=== PATIENT | female | born 1960 | race Native Hawaiian/Other Pacific Islander ===

== ENCOUNTER 2023-12-11 12:52 | Outpatient (OUT) | payer MEDICARE, MEDICAID, SELFPAY ==
[2023-12-11 13:26] LABS: Basophils Absolute Auto 0.1 10^3/uL (0.0-0.1); Basophils Percent Auto 0.8 % (0.2-2.0); Eosinophils Absolute Auto 0.4 10^3/uL (0.0-0.7); Eosinophils Percent Auto 2.6 % (0.9-7.0); Hematocrit 40.5 % (36.0-48.0); Immature Granulocytes Abs Auto 0.05 10^3/uL (0.00-0.03); Immature Granulocytes Pct Auto 0.4 % (0.0-0.5); Lymphocytes Absolute Auto 4.2 10^3/uL (1.2-3.8); Lymphocytes Percent Auto 30.6 % (20.5-60.0); Mean Corpuscular HGB Conc 32.1 g/dL (29.9-35.2); Mean Corpuscular Volume 87.3 fL (81.0-99.0); Mean Platelet Volume 10.1 fL (9.5-13.5); Monocytes Absolute Auto 0.5 10^3/uL (0.3-0.8); Monocytes Percent Auto 3.9 % (1.7-12.0); Neutrophils Absolute Auto 8.5 10^3/uL (1.4-6.5); Neutrophils Percent Auto 61.7 % (43.0-75.0); Platelet Count 521 10^3/uL (150-450); Red Blood Count 4.64 10^6/uL (4.20-5.40); Red Cell Distribution Width 14.2 % (11.0-15.0); White Blood Count 13.7 10^3/uL (4.0-11.0)
[2023-12-11 13:29] LABS: Bilirubin Urine NEGATIVE (NEGATIVE); Blood Urine NEGATIVE (NEGATIVE); Clarity Urine CLEAR (CLEAR); Color Urine YELLOW (YELLOW); Glucose Urine UA NEGATIVE (NEGATIVE); Ketones Urine NEGATIVE (NEGATIVE); Leukocyte Esterase Urine NEGATIVE (NEGATIVE); Nitrite Urine NEGATIVE (NEGATIVE); Protein Urine NEGATIVE (NEG/TRACE); Specific Gravity Urine 1.015 (1.005-1.025); Urobilinogen Urine 0.2 EU/dL (0.2-1.0); pH Urine 6.5 (5.0-9.0)
[2023-12-11 13:33] LABS: Urine Microscopic Indicated NO
[2023-12-11 13:39] LABS: Creatinine Urine Random 108.32 mg/dL (20.00-300.00); Microalbum Creatinine Ratio Ur 24.9 mg/g (0.0-29.9); Microalbumin Urine Random 2.7 mg/dL (<=30.0)
[2023-12-11 14:51] LABS: Alanine Aminotransferase 33 U/L (14-59); Albumin Globulin Ratio 0.8; Albumin Level 3.6 g/dL (3.4-5.0); Alkaline Phosphatase 123 U/L (46-116); Anion Gap 14.2; Aspartate Amino Transferase 21 U/L (15-37); Bilirubin Total 0.3 mg/dL (0.2-1.0); Calcium 9.2 mg/dL (8.5-10.1); Carbon Dioxide 26.1 mmol/L (21.0-32.0); Chloride 103 mmol/L (98-107); Cholesterol 208 mg/dL (<=200); Estimated GFR (African America >60 (>=60); Estimated GFR (Non-African Ame 56 (>=60); Globulin 4.3 g/dL; Glucose 104 mg/dL (74-106); HDL Cholesterol 52 mg/dL (40-60); Potassium 3.3 mmol/L (3.5-5.1); Sodium 140 mmol/L (136-145); TSH W/ REFLEX FT4 1.638 uIU/mL (0.358-3.740); Total Protein 7.9 g/dL (6.4-8.2); Triglycerides 77 mg/dL (<=150); VLDL CHOLESTEROL 15.4 mg/dL
== END 2023-12-11 12:53 | disposition home or self-care (01) ==
LOC: LAB 12:59
PROVIDERS: PCP Nurse Practitioner; Visit Provider Nurse Practitioner
DX: K21.9 Gastro-esophageal reflux disease without esophagitis (principal); I10 Essential (primary) hypertension; E78.2 Mixed hyperlipidemia; F41.9 Anxiety disorder, unspecified
CPT/HCPCS: 36415; 80053; 80061; 81003; 82043; 82570; 84443; 85025

== ENCOUNTER 2024-02-27 10:36 | Outpatient (OUT) | payer MEDICARE, MEDICAID, SELFPAY ==
--- OUTSIDE RECORDS SUMMARY | 2024-02-27 10:49 | XMS_ITS | CCD ---
Author Organization [facility] Care Team Providers Care Sales Ledger Clerk Name Role Phone AICHHOLZ, GEOTHERMAL POWERPLANT SUPERVISOR LIVIA Primary Care Unavailable AICHHOLZ, GEOTHERMAL POWERPLANT SUPERVISOR LIVIA Admitting Unavailable AICHHOLZ, GEOTHERMAL POWERPLANT SUPERVISOR LIVIA Attending Unavailable AICHHOLZ, GEOTHERMAL POWERPLANT SUPERVISOR LIVIA Consulting Unavailable AICHHOLZ, GEOTHERMAL POWERPLANT SUPERVISOR LIVIA Consulting Unavailable AICHHOLZ, GEOTHERMAL POWERPLANT SUPERVISOR LIVIA Primary Care Unavailable AICHHOLZ, GEOTHERMAL POWERPLANT SUPERVISOR LIVIA Admitting Unavailable AICHHOLZ, GEOTHERMAL POWERPLANT SUPERVISOR LIVIA Attending Unavailable ZIEBROEL, DR CAMPOS Laws Consulting Unavailable AICHHOLZ, GEOTHERMAL POWERPLANT SUPERVISOR LIVIA Primary Care Unavailable ODESSA, DR ALBAN Walters Consulting Unavailable AICHHOLZ, GEOTHERMAL POWERPLANT SUPERVISOR LIVIA Admitting Unavailable AICHHOLZ, GEOTHERMAL POWERPLANT SUPERVISOR LIVIA Attending Unavailable AICHHOLZ, GEOTHERMAL POWERPLANT SUPERVISOR LIVIA Consulting Unavailable AICHHOLZ, GEOTHERMAL POWERPLANT SUPERVISOR LIVIA Primary Care Unavailable AICHHOLZ, GEOTHERMAL POWERPLANT SUPERVISOR LIVIA Admitting Unavailable AICHHOLZ, GEOTHERMAL POWERPLANT SUPERVISOR LIVIA Attending Unavailable AICHHOLZ, GEOTHERMAL POWERPLANT SUPERVISOR LIVIA Consulting Unavailable JUANEBROEL, DR CAMPOS Laws Consulting Unavailable Aichholz RN DISEASE MANAGEMENT, Livia Unavailable Jason Subramanian MD Primary Care Provider AICHHOLZ, LIVIA Attending Unavailable AICHHOLZ, LIVIA Attending Unavailable Allergies Allergy Classification Reported Allergen(s) Allergy Type Date of Onset Reaction(s) Facility (2 sources) Famotidine Propensity to adverse reactions 3 Cough [facility] Work Phone: Medications Current Medications Medication Drug Class(es) Dates Sig (Normalized) Sig (Original) [id number] 200 actuat albuterol 0.09 mg/actuat metered dose inhaler (4 sources) beta2-Adrenergic Agonist Start: 11-19-2023 End: 12-19-2023 take 2 puff(s) by inhalation every six hours for wheezing and wheezing, then take 2 puff(s) by inhalation every four hours for wheezing and wheezing albuterol HFA 90 mcg/act inhaler Indications: Environmental allergies Inhale 2 puffs every 6 (six) hours if needed for wheezing Inhale 2 puffs every 4 (four) hours if needed for wheezing. 18 g 1 11/19/2023 12/19/2023 Active End: 11-19-2023 take 2 puff(s) by inhalation every four hours for wheezing albuterol HFA 90 mcg/act inhaler Inhale 2 puffs every 4 (four) hours if needed for wheezing. 0 11/19/2023 Discontinued (Reorder) cholecalciferol 0.05 mg oral capsule (2 sources) Vitamin D take 1 capsule by mouth in the morning cholecalciferol (Vitamin D-3) 50 MCG (2000 UT) capsule Take 2,000 Units by mouth in the morning. 0 Active fluticasone (2 sources) Corticosteroid FLUTICASONE PROPIONATE, NASAL, NA Fluticasone Propionate 0 Active Fluticasone-Umeclidin -Vilant (Trelegy Ellipta) 200-62.5-25 MCG/ACT aerosol powder (2 sources) Start: 2022 take 1 puff(s) by inhalation in the morning Fluticasone-Umeclidi n-Vilant (Trelegy Ellipta) 200-62.5-25 MCG/ACT aerosol powder Indications: Moderate persistent asthma without complication (CMS/HCC) Inhale 1 puff in the morning. 1 each 05/13/2023 Active 24 hr metoprolol succinate 50 mg extended release oral tablet (4 sources) beta-Adrenergic Gordo Start: 2023 End: 2023 take 1 tablet by mouth every twenty-four hours in the morning metoprolol succinate XL (Toprol-XL) 50 MG 24 hr tablet Indications: Primary hypertension (CMS/HCC) Take 1 tablet (50 mg) by mouth in the morning. Do not crush or chew.. 30 tablet 1 11/19/2023 12/19/2023 Active montelukast 10 mg oral tablet (4 sources) Leukotriene Receptor Antagonist Start: 2022 End: 2023 take 1 tablet by mouth at bedtime montelukast (Singulair) 10 MG tablet Indications: Environmental allergies Take 1 tablet (10 mg) by mouth at bedtime 30 tablet 1 11/19/2023 12/19/2023 Active 24 hr nicotine 0.875 mg/hr transdermal system (2 sources) Cholinergic Nicotinic Agonist Start: 2023 End: 2023 apply 1 dose transdermal route every twenty-four hours, then apply 1 dose transdermal route once daily nicotine (Nicoderm, Step 1) 21 MG/24HR patch Indications: Tobacco user Place 1 patch over 24 hours on the skin 1 (one) time each day at the same time Replace patch each day, rotate sites to avoid skin irritation 30 patch 1 11/19/2023 12/19/2023 Active 24 hr NIFEdipine 90 mg extended release oral tablet (4 sources) Dihydropyridine Calcium Channel Gordo Start: 2023 End: 2023 take 1 tablet by mouth every twenty-four hours in the morning NIFEdipine CC (Adalat CC) 90 MG 24 hr tablet Indications: Primary hypertension (CMS/HCC) Take 1 tablet (90 mg) by mouth in the morning. Take before meals. Do not crush, chew, or split.Take 90 mg by mouth in the morning. Take before meals. Do not crush, chew, or split... 30 tablet 1 11/19/2023 12/19/2023 Active Problems Active Problems Problem Classification Problem Date Documented Date Episodic/Chronic Allergic reactions (4 sources) Environmental allergy; Translations: [Other allergy status, other than to drugs and biological substances] Onset: 11-11-2023 11-19-2023 Episodic Anxiety disorders (4 sources) Anxiety; Translations: [Anxiety disorder, unspecified] Onset: 11-11-2023 11-19-2023 Chronic Chronic kidney disease (1 source) Chronic kidney disease, unspecified; Translations: [CHRONIC KIDNEY DISEASE UNSPECIFIED] Onset: 05-16-2022 Chronic Disorders of lipid metabolism (4 sources) Mixed hyperlipidemia; Translations: [Mixed hyperlipidemia] Onset: 11-11-2023 11-19-2023 Chronic Esophageal disorders (4 sources) Gastroesophageal reflux disease; Translations: [Gastro-esophageal reflux disease without esophagitis] Onset: 11-11-2023 11-19-2023 Chronic Essential hypertension (4 sources) Essential hypertension; Translations: [Essential (primary) hypertension] Onset: 11-11-2023 11-19-2023 Chronic Hypertension with complications and secondary hypertension (4 sources) Hypertensive chronic kidney disease with stage 1 through stage 4 chronic kidney disease, or unspecified chronic kidney disease; Translations: [HTN CKD W/STAGE 1-4 CKD/UNS CKD] Onset: 05-10-2022 Chronic Other connective tissue disease (4 sources) Triggering of digit; Translations: [Trigger finger, right middle finger] Onset: 11-19-2023 11-19-2023 Episodic Other lower respiratory disease (7 sources) Chronic cough; Translations: [Chronic cough] Onset: 05-14-2022 Episodic Other screening for suspected conditions (not mental disorders or infectious disease) (4 sources) Encounter for screening mammogram for malignant neoplasm of breast; Translations: [ENC SCR MAMMO MALIG NEOPLASM BREAST] Onset: 02-12-2023 Episodic Residual codes; unclassified (4 sources) Tobacco user; Translations: [Tobacco use] Onset: 11-19-2023 11-19-2023 Episodic Spondylosis; intervertebral disc disorders; other back problems (6 sources) Spondylosis without myelopathy or radiculopathy, cervical region; Translations: [Other intervertebral disc degeneration, lumbar region] Onset: 05-17-2022 11-11-2023 Chronic Spondylosis; intervertebral disc disorders; other back problems (2 sources) Spinal stenosis in cervical region; Translations: [Spinal stenosis, cervical region] Onset: 11-11-2023 11-11-2023 Episodic Past or Other Problems Problem Classification Problem Date Documented Da te Episodic/Chronic Other acquired deformities (4 sources) Spondylolisthesis , cervical region; Translations: [SPONDYLOLISTHESI S CERVICAL REGION] Onset: 07-12-2022 Episodic Other nutritional; endocrine; and metabolic disorders (1 source) Overweight; Translations: [OVERWEIGHT] Onset: 05-16-2022 Episodic Results Test Name Value Interpretation Reference Range Facil ity HEMOGLOBINon 02-12-2023 Hemoglobin (Bld) [Mass/Vol] 14.1 g/dL Normal 12.0-16.0 [facility] Comment on above: Performed By: #### H GB ####[facility] [id number] [place] [address]Dr. Neno Bhandari MG MAMM SCREEN 3D SHAWN CADon 02-12-2023 MG MAMM SCREEN 3D SHAWN CAD Patient: LEXII LUCIANO Exam Date: 02/12/2023 : 1960 Gender:F Ordering : [facility] Admission #: [id number] Family : Order #: [id number] CLICK HERE TO VIEW EXAM RADIOLOGY REPORT PROCEDURE: MAMMOGRAM SCREENING 3D BILATERAL CAD COMPARISON: None. INDICATIONS: Screening mammography Calculator Name NCI Breast Cancer Risk Assessment Tool 5 Year Breast Cancer Risk Not Reported. Lifetime Breast Cancer Risk Not Reported. Personal Breast Cancer No Personal Ovarian Cancer No Treatments None Family Cancers None LOCATION: [facility] BREAST COMPOSITION: Scattered areas fibroglandular density. FINDINGS: DIAGNOSTIC CATEGORY 1--NEGATIVE. RIGHT BREAST: No significant suspicious finding. LEFT BREAST: No significant suspicious finding. RECOMMENDATIONS: ROUTINE MAMMOGRAM AND CLINICAL EVALUATION IN 12 MONTHS. PLEASE NOTE: A NORMAL MAMMOGRAM DOES NOT EXCLUDE THE POSSIBILITY OF BREAST CANCER. A CLINICALLY SUSPICIOUS PALPABLE LUMP SHOULD BE BIOPSIED. Dictated by: Campos Crowley M.D. on 03/13/2023 at 11:56 Approved by: Campos Crowley M.D. on 03/13/2023 at 12:00 Normal [facility] MRI CSPINE WO CONon 09-29-20 22 MRI CSPINE WO CON EXAMINATION: MRI CSP INE WO CON HISTORY: Spondylolisthesis COMPARISON: 05/14/2022 TECHNIQUE: A variety of imaging planes and parameters were utilized for visualization of suspected pathology. FINDINGS: CRANIOCERVICAL AREA: Normal foramen magnum with no Chiari malformation. PARASPINAL AREA: Normal with no visible mass. BONES: Reversal of cervical lordosis. No acute fracture or spondylolisthesis. Mild to moderate diffuse degenerative spondylosis and facet osteoarthropathy CORD: Normal caliber, contour, and signal intensity. CERVICAL DISC LEVELS: C2-C3: No significant disc/facet abnormality, spinal stenosis, or foraminal stenosis. C3-C4: Disc desiccation. Moderate disc/osteophyte complex and facet osteoarthropathy. Narrowing the central canal to 7 mm in AP dimension. Mild bilateral foraminal stenosis C4-C5: Moderate disc space narrowing and disc desiccation. Mild to moderate diffuse disc/osteophyte complex with facet osteoarthropathy narrowing of the central canal to 7.7 mm in AP dimension. Moderate right and no left foraminal stenosis C5-C6: Moderate disc space narrowing. Moderate diffuse disc/osteophyte complex and facet osteoarthropathy narrowing the central canal to 6.1 mm. Moderate bilateral foraminal stenosis C6-C7: Early degenerative disc disease is present without focal protrusion or neural impingement. C7-T1:. No significant disc/facet abnormality, spinal stenosis, or foraminal stenosis. IMPRESSION: Moderate degenerative changes resulting in central and foraminal stenosis at multiple levels as detailed above Reversal of normal cervical lordosis Electronically authenticated by: ALBAN JIN Date: 2022-07-12 17:49 Normal [facility] XR CHEST 2 Von 05-15-2022 XR CHEST 2 V EXAMINATION: XR CHES T 2 V HISTORY: Chronic cough , back pain COMPARISON: No relevant comparison available. FINDINGS: LUNGS: No significant pulmonary parenchymal abnormalities. VASCULATURE: No increased pulmonary vasculature. PLEURA: No pneumothorax, effusion, or pleural thickening. CARDIAC: No cardiomegaly or cardiac silhouette abnormality. MEDIASTINUM: No visible mass or adenopathy. BONES: Mild right convex curvature of thoracic spine. OTHER: Negative. IMPRESSION: 1. No acute cardiopulmonary process. 2. Mild dextroscoliosis. Electronically authenticated by: CAMPOS CROWLEY Date: 2022-05-15 10:29 Normal [facility] XR CSPINE 2_3 VIEWSon 2021 XR CSPINE 2_3 VIEWS EXAMINATION: XR CSPINE 2_3 VIEWS HISTORY: Degeneration of cervical intervertebral disc ; chronic neck pain COMPARISON: No relevant comparison available. FINDINGS: BONES: Reversal of the normal lordotic curvature. Minimal grade 1 retrolisthesis of C4-C5 and C5 on 6. No compression fracture. Multilevel mild degenerative facet arthropathy. DISC SPACES: Mild narrowing C3-C4, C4-C5, C5-C6. PARASPINOUS: Negative. No paraspinous abnormality is seen. OTHER: Negative. IMPRESSION: 1. Multilevel mild degenerative changes. Consider MRI for further evaluation. 2. Reversal of normal lordotic curvature; positioning versus muscle spasm. Electronically authenticated by: CAMPOS CROWLEY Date: 2022-05-15 10:25 Normal [facility] XR LSPINE 2_3 VIEWSon 2021 XR LSPINE 2_3 VIEWS EXAMINATION: XR LSPINE 2_3 VIEWS HISTORY: Degeneration of lumbar intervertebral disc ; chronic low back pain COMPARISON: No relevant comparison available. FINDINGS: BONES: No significant spondylosis, scoliosis, fracture, or visible bony lesion. DISC SPACES: Marked narrowing L5-S1. Mild narrowing L4-L5. PARASPINOUS: Negative. No paraspinous abnormality is seen. OTHER: Negative. IMPRESSION: 1. L5-S1 marked degenerative disc disease. Consider MRI for further evaluation. Electronically authenticated by: CAMPOS CROWLEY Date: 2022-05-15 10:30 Normal [facility] PTH INTACTon 05-11-2022 PTH, Intact 39 pg/mL Normal 15-65 [facility] Comment on above: Performed By: #### P THINT #### [facility] [address] [place] [address] Dr. Neno Bhandari CBC AUTO DIFFon 05-10-2022 BASO # 0.1 103/ul Normal 0.0-0.1 [facility] Comment on above: Performed By: #### C BC #### [facility] [address] [place] [address] Dr. Neno Bhandari Basophils/100 WBC (Bld) 0.9 % Normal 0.2-2.0 [facility] Comment on above: Performed By: #### C BC #### [facility] [address] [place] [address] Dr. Neno Bhandari EO # 0.4 103/ul Normal 0.0-0.7 [facility] Comment on above: Performed By: #### C BC #### [facility] [address] [place] [address] Dr. Neno Bhandari Eosinophils/100 WBC (Bld) 2.9 % Normal 0.9-7.0 [facility] Comment on above: Performed By: #### C BC #### [facility] [address] [place] [address] Dr. Neno Bhandari Erythrocyte distribution width (RBC) [Ratio] 14.2 % Normal 11.0-15.0 [facility] Comment on above: Performed By: #### C BC #### [facility] [address] [place] [address] Dr. Neno Bhandari Hematocrit (Bld) [Volume fraction] 40.8 % Normal 36.0-48.0 [facility] Comment on above: Performed By: #### C BC #### [facility] [address] [place] [address] Dr. Neno Bhandari Hemoglobin (Bld) [Mass/Vol] 13.4 g/dL Normal 12.0-16.0 [facility] Comment on above: Performed By: #### C BC #### [facility] [address] [place] [address] Dr. Neno Bhandari IG # 0.06 10e3/ul Critically high 0.00-0.03 [facility] Comment on above: Performed By: #### C BC #### [facility] [address] [place] [address] Dr. Neno Bhandari IG % 0.5 % Normal 0.0-0.5 [facility] Comment on above: Performed By: #### C BC #### [facility] [address] [place] [address] Dr. Neno Bhandari LYMPH # 3.9 103/ul Critically high 1.2-3.8 [facility] Comment on above: Performed By: #### C BC #### [facility] [address] [place] [address] Dr. Neno Bhandari Lymphocytes/100 WBC (Bld) 30.7 % Normal 20.5-60.0 [facility] Comment on above: Performed By: #### C BC #### [facility] [address] [place] [address] Dr. Neno Bhandari MANUAL DIFF REQ NO Normal [facility] Comment on above: Performed By: #### C BC #### [facility] [address] [place] [address] Dr. Neno Bhandari MCH (RBC) [Entitic mass] 28.3 pg Normal 26.7-34.0 [facility] Comment on above: Performed By: #### C BC #### [facility] [address] [place] [address] Dr. Neno Bhandari MCHC (RBC) [Mass/Vol] 32.8 g/dL Normal 29.9-35.2 [facility] Comment on above: Performed By: #### C BC #### [facility] [address] [address] [address] Neno Bhandari MCV (RBC) [Entitic vol] 86.3 fL Normal 81.0-99.0 [facility] Comment on above: Performed By: #### C BC #### [facility] [address] [address] [address] Neno Bhandari MONO # 0.5 103/ul Normal 0.3-0.8 [facility] Comment on above: Performed By: #### C BC #### [facility] [address] [address] [address] Neno Bhandari Monocytes/100 WBC (Bld) 4.1 % Normal 1.7-12.0 [facility] Comment on above: Performed By: #### C BC #### [facility] [address] [address] [address] Neno Bhandari NEUT # 7.7 103/ul Critically high 1.4-6.5 [facility] Comment on above: Performed By: #### C BC #### [facility] [address] [id number] Neno Bhandari Neutrophils/100 WBC (Bld) 60.9 % Normal 43.0-75.0 [facility] Comment on above: Performed By: #### C BC #### [facility] [address] [address] [address] Neno Bhandari Platelet mean volume (Bld) [Entitic vol] 11.1 fL Normal 9.5-13.5 [facility] Comment on above: Performed By: #### C BC #### [facility] [address] [address] [address] Neno Bhandari PLT 392 103/ul Normal 150-450 [facility] Comment on above: Performed By: #### C BC #### [facility] [id number] Neno Bhandari RBC 4.73 106/ul Normal 4.20-5.40 [facility] Comment on above: Performed By: #### C BC #### [facility] [address] [address] [address] Neno Bhandari WBC 12.6 103/ul Critically high 4.0-11.0 [facility] Comment on above: Performed By: #### C BC #### [facility] [address] [address] [address] Neno Bhandari LIPID PROFILEon 05-10-2022 CHOL-HDL RATIO NORM SEE BELOW Normal [facility] Comment on above: Result Comment: 3.3 - 4.4 LOW RISK 4.4 - 7.1 AVERAGE RISK 7.1 - 11.0 MODERATE RISK >11.0 HIGH RISK Performed By: #### P HOS, CMP, LIPID #### [facility] [address] [address] [address] Neno Bhandari Cholesterol [Mass/Vol] 211 mg/dL Critically high <=200 [facility] Comment on above: Performed By: #### P HOS, CMP, LIPID #### [facility] [address] [address] [address] Neno Bhandari Cholesterol in HDL [Mass/Vol] 50 mg/dL Normal 40-60 [facility] Comment on above: Performed By: #### P HOS, CMP, LIPID #### [facility] [address] [address] [address] Neno Bhandari Cholesterol in LDL [Mass/Vol] 137.4 mg/dL Normal [facility] Comment on above: Performed By: #### P HOS, CMP, LIPID #### [facility] [address] [address] [address] Neno Bhandari Cholesterol.total/ Cholesterol in HDL [Mass ratio] 4.2 {ratio} Normal [facility] Comment on above: Performed By: #### P HOS, CMP, LIPID #### [facility] [address] [place] [address] Dr. Neno Bhandari HDL NORMAL > or = 60 mg/dl - LO W CARDIOVASCULAR RISK <40 mg/dl - HIGH CARDIOVASCULAR RISK Normal [facility] Comment on above: Performed By: #### P HOS, CMP, LIPID #### [facility] [address] [address] [address] Neno Bhandari LDL CALC NORMAL SEE BELOW Normal [facility] Comment on above: Result Comment: <100 mg/dl OPTIMAL 100 - 129 mg/dl NEAR OR ABOVE OPTIMAL 130 - 159 mg/dl BORDERLINE HIGH 160 - 189 mg/dl HIGH >190 mg/dl VERY HIGH Performed By: #### P HOS, CMP, LIPID #### [facility] [address] [address] [address] Neno Bhandari Triglyceride [Mass/Vol] 118 mg/dL Normal <=150 [facility] Comment on above: Performed By: #### P HOS, CMP, LIPID #### [facility] [address] [address] [address] Neno Bhandari VLDL CALC 23.6 mg/dL Normal [facility] Comment on above: Performed By: #### P HOS, CMP, LIPID #### [facility] [address] [address] [address] Neno Bhandari PHOSPHORUSon 05-10-2022 Phosphate [Mass/Vol] 2.9 mg/dL Normal 2.6-4.7 [facility] Comment on above: Performed By: #### P HOS, CMP, LIPID #### [facility] [address] [address] [address] Neno Bhandari PROF 14(COMP METB)on 022 Albumin [Mass/Vol] 3.7 g/dL Normal 3.4-5.0 [facility] Comment on above: Performed By: #### P HOS, CMP, LIPID #### [facility] [address] [address] [address] Neno Bhandari Albumin/Globulin [Mass ratio] 1.1 {ratio} Normal [facility] Comment on above: Performed By: #### P HOS, CMP, LIPID #### [facility] [address] [address] [address] Neno Bhandari ALP [Catalytic activity/Vol] 70 U/L Normal 46-116 [facility] Comment on above: Performed By: #### P HOS, CMP, LIPID #### [facility] [address] [address] [address] Neno Bhandari ALT [Catalytic activity/Vol] 16 U/L Normal 14-59 [facility] Comment on above: Performed By: #### P HOS, CMP, LIPID #### [facility] [address] [address] [address] Neno Bhandari Anion gap [Moles/Vol] 14.1 mmol/L Normal [facility] Comment on above: Performed By: #### P HOS, CMP, LIPID #### [facility] [address] [address] [address] Neno Bhandari AST [Catalytic activity/Vol] 21 U/L Normal 15-37 [facility] Comment on above: Performed By: #### P HOS, CMP, LIPID #### [facility] [address] [place] [address] Dr. Neno Bhandari Bilirubin [Mass/Vol] 0.4 mg/dL Normal 0.2-1.0 [facility] Comment on above: Performed By: #### P HOS, CMP, LIPID #### [facility] [address] [place] [address] Dr. Neno Bhandari Calcium [Mass/Vol] 8.8 mg/dL Normal 8.5-10.1 [facility] Comment on above: Performed By: #### P HOS, CMP, LIPID #### [facility] [address] [place] [address] Dr. Neno Bhandari Chloride [Moles/Vol] 108 mmol/L Critically high 98-107 [facility] Comment on above: Performed By: #### P HOS, CMP, LIPID #### [facility] [address] [place] [address] Dr. Neno Bhandari CO2 [Moles/Vol] 23.5 mmol/L Normal 21.0-32.0 [facility] Comment on above: Performed By: #### P HOS, CMP, LIPID #### [facility] [address] [place] [address] Dr. Neno Bhandari Creatinine [Mass/Vol] 0.77 mg/dL Normal 0.55-1.02 [facility] Comment on above: Performed By: #### P HOS, CMP, LIPID #### [facility] [address] [address] [address] Neno Bhandari EGFR-AF GREEK >60 Normal >=60 [facility] Comment on above: Performed By: #### P HOS, CMP, LIPID #### [facility] [address] [address] [address] Neno Bhandari EGFR-NON AF GREEK >60 Normal >=60 [facility] Comment on above: Performed By: #### P HOS, CMP, LIPID #### [facility] [address] [address] [address] Neno Bhandari Globulin (S) [Mass/Vol] 3.5 g/dL Normal [facility] Comment on above: Performed By: #### P HOS, CMP, LIPID #### [facility] [address] [address] [address] Neno Bhandari Glucose [Mass/Vol] 104 mg/dL Normal 74-106 [facility] Comment on above: Performed By: #### P HOS, CMP, LIPID #### [facility] [address] [address] [address] Neno Bhandari Potassium [Moles/Vol] 3.6 mmol/L Normal 3.5-5.1 [facility] Comment on above: Performed By: #### P HOS, CMP, LIPID #### [facility] [address] [address] [address] Neno Bhandari Protein [Mass/Vol] 7.2 g/dL Normal 6.4-8.2 [facility] Comment on above: Performed By: #### P HOS, CMP, LIPID #### [facility] [address] [address] [address] Neno Bhandari Sodium [Moles/Vol] 142 mmol/L Normal 136-145 [facility] Comment on above: Performed By: #### P HOS, CMP, LIPID #### [facility] [address] [address] [address] Neno Bhandari Urea nitrogen [Mass/Vol] 14.0 mg/dL Normal 7.0-18.0 [facility] Comment on above: Performed By: #### P HOS, CMP, LIPID #### [facility] [address] [address] [address] Neno Bhandari Urea nitrogen/Creatinin e [Mass ratio] 18.2 mg/mg Normal [facility] Comment on above: Performed By: #### P HOS, CMP, LIPID #### [facility] [address] [address] [address] Neno Bhandari UA RANDOM W/MICROSCOPICon BACTERIA NONE SEEN Normal NONE SEEN [facility] Comment on above: Performed By: #### U AMIC ####[facility] [address] [address]Dr. Neno Bhandari Bilirubin Ql (U) Negative Normal NEGATIVE [facility] Comment on above: Performed By: #### U AMIC ####[facility] [address] [address]Dr. Neno Bhandari CA OX CRYSTALS MODERATE Normal [facility] Comment on above: Performed By: #### U AMIC ####[facility] [address] [address]DrJoel Bhandari CAST NONE SEEN Normal NONE SEEN [facility] Comment on above: Performed By: #### U AMIC ####[facility] [address] [address]Dr. Neno Bhandari Clarity (U) CLEAR Normal CLEAR [facility] Comment on above: Performed By: #### U AMIC ####[facility] [address] [address]Dr. Neno Bhandari Color (U) LT. YELLOW Normal YELLOW [facility] Comment on above: Performed By: #### U AMIC ####[facility] [address] [address]Dr. Neno Bhandari Crystals LM Nom (Urine sed) SEEN Abnormal NONE SEEN [facility] Comment on above: Performed By: #### U AMIC ####[facility] [address] [address]Dr. Neno Bhandari Epithelial cells LM Ql (Urine sed) RARE Normal NONE SEEN /RARE [facility] Comment on above: Performed By: #### U AMIC ####[facility] [address] [address]Dr. Neno Bhandari Glucose Ql (U) Negative Normal NEGATIVE [facility] Comment on above: Performed By: #### U AMIC ####[facility] [address] [address]Dr. Neno Bhandari Hemoglobin Ql (U) TRACE-INTACT Abnormal NEGATIVE [facility] Comment on above: Performed By: #### U AMIC ####[facility] [address] [address]Dr. Neno Bhandari Ketones Ql (U) Negative Normal NEGATIVE [facility] Comment on above: Performed By: #### U AMIC ####[facility] [address] [place], [place] [address]Dr. Neno Thony LEUKOCYTES Negative Normal NEGATIVE [facility] Comment on above: Performed By: #### U AMIC ####[facility] [address] [place], [place] [address]Dr. Neno Bhandari MUCOUS NONE SEEN Normal NONE SEEN [facility] Comment on above: Performed By: #### U AMIC ####[facility] [address] [place], [place] [address]Dr. Neno Bhandari Nitrite Ql (U) Negative Normal NEGATIVE [facility] Comment on above: Performed By: #### U AMIC ####[facility] [address] [place], [place] [address]Dr. Neno Bhandari pH (U) 7.0 [pH] Normal 5-9 [facility] Comment on above: Performed By: #### U AMIC ####[facility] [address] [address]Dr. Neno Bhandari RBC 0-2 Normal 0-2 [facility] Comment on above: Performed By: #### U AMIC ####[facility] [address] [address]Dr. Neno Bhandari SPEC GRAVITY 1.020 Normal 1.005-<=1.025 The [facility] Comment on above: Performed By: #### U AMIC ####[facility] [address] [place], [place] [address]Cf. Neno Bhandari UA PROTEIN Negative Normal NEGATIVE/ TRACE [facility] Comment on above: Performed By: #### U AMIC ####[facility] [address] [place], [place] [address]Bw. Neno Bhandari Urobilinogen Qn (U) 0.2 {Camille'U}/dL Normal 0.2 - 1.0 [facility] Comment on above: Performed By: #### U AMIC ####[facility] [address] [id number]. Neno Bhandari WBC 0-2 Abnormal NONE SEEN [facility] Comment on above: Performed By: #### U AMIC ####[facility] [address] [address]Dr. Neno Bhandari Vital Signs Date Time Vital Sign Value Performing Clinician Jesus schofield 11-19-2023 14:30-0500 Body height 149.9 cm Livia Villegas RN DISEASE MANAGEMENT Work Phone: [facility] 11-19-2023 14:30-0500 Body mass index (BMI) [Ratio] 25.37 kg/m2 Livia Villegas RN DISEASE MANAGEMENT Work Phone: [facility] 11-19-2023 14:30-0500 Body temperature 98.01 [degF] Livia Villegas RN DISEASE MANAGEMENT Work Phone: [facility] 11-19-2023 14:30-0500 Body weight 56.97 kg Livia Villegas RN DISEASE MANAGEMENT Work Phone: [facility] 11-19-2023 14:30-0500 Diastolic blood pressure 78 mm[Hg] Livia Villegas RN DISEASE MANAGEMENT Work Phone: [facility] 11-19-2023 14:30-0500 Heart rate 113 /min Livia Villegas RN DISEASE MANAGEMENT Work Phone: [facility] 11-19-2023 14:30-0500 Respiratory rate 18 /min Livia Vilelgas RN DISEASE MANAGEMENT Work Phone: [facility] 11-19-2023 14:30-0500 SaO2% (BldA) [Mass fraction] 99 % Livia Villegas RN DISEASE MANAGEMENT Work Phone: [facility] 11-19-2023 14:30-0500 Systolic blood pressure 112 mm[Hg] Livia Villegas RN DISEASE MANAGEMENT Work Phone: [facility] Healthcare Encounters Encounter Date Encounter Type Care Provider Facility Start: 01-29-2024 End: 01-29-2024 ambulatory LIVIA MAXIMOZ Not Available Start: 11-19-2023 End: 11-19-2023 ambulatory LIVIA MAXIMOZ Not Available Start: 11-19-2023 End: 11-19-2023 Office outpatient visit 25 minutes Livia Villegas RN DISEASE MANAGEMENT Work Phone: [facility] Comment on above: Primary hypertension (CMS/HCC) (Primary Dx); Gastroesophageal reflux disease, unspecified whether esophagitis present; Mixed hyperlipidemia (CMS/HCC); Environmental allergies; Anxiety; Tobacco user; Trigger middle finger of right hand Start: 02-12-2023 End: 02-13-2023 ambulatory [employer]OTHER[employer] POWERPLANT SUPERVISOR LIVIA GRAYHHOLZ Facility:[facility]1 Start: 07-12-2022 End: 07-13-2022 ambulatory GEOTHER[employer] POWERPLANT SUPERVISOR LIVIA GRAYHHOLZ Facility:[facility] Start: 05-14-2022 End: 05-15-2022 ambulatory GEOTHER[employer] POWERPLANT SUPERVISOR LIVIA ABHINAVHOLZ Facility:[facility] Start: 05-10-2022 End: 05-11-2022 ambulatory GEOTHERM[employer] POWERPLANT SUPERVISOR LIVIA GRAYHHOLZ Facility:[facility] Procedures Date Procedure Procedure Detail Performing Clinician Start: 03-13-2023 Mammography Livia Terrie norwood RN DISEASE MANAGEMENT Work Phone: Plan of Treatment Date Care Activity Detail Author Start: 03-13-2024 Screening for malign ant neoplasm of breast Mammogram [facility] Start: 12-25-2023 End: 12-25-2023 Patient encounter procedure 12/25/2023 2:00 PM EDT Office Visit [facility] [address] [place] [id number] Livia Villegas NP [address] [place] [address] [facility] Start: 11-19-2023 End: 11-19-2024 CBC W Auto Differential panel - Blood CBC and differential Lab Routine Gastroesophageal reflux disease, unspecified whether esophagitis present Expected: 11/19/2023 (Approximate), Expires: 11/19/2024 [facility] Work Phone: Comment on above: Expected: 11/19/2023 (Approximate), Expires: 11/19/2024 Start: 11-19-2023 End: 11-19-2024 Comprehensive metabolic 2000 panel - Serum or Plasma Comprehensive metabolic panel Lab Routine Primary hypertension (CMS/HCC) Expected: 11/19/2023 (Approximate), Expires: 11/19/2024 [facility] Comment on above: Expected: 11/19/2023 (Approximate), Expires: 11/19/2024 Start: 11-19-2023 End: 11-19-2024 Lipid 1996 panel - Serum or Plasma Lipid panel Lab Routine Mixed hyperlipidemia (CMS/HCC) Expected: 11/19/2023 (Approximate), Expires: 11/19/2024 [facility] Comment on above: Expected: 11/19/2023 (Approximate), Expires: 11/19/2024 Start: 11-19-2023 End: 11-19-2024 Microalbumin/Creatinine panel in random Urine Microalbumin / creatinine, urine ratio Lab Routine Primary hypertension (CMS/HCC) Expected: 11/19/2023 (Approximate), Expires: 11/19/2024 [facility] Comment on above: Expected: 11/19/2023 (Approximate), Expires: 11/19/2024 Start: 11-19-2023 End: 11-19-2024 TSH W/REFLEX TO FT4 TSH W/REFLEX TO FT4 Lab Routine Anxiety Expected: 11/19/2023 (Approximate), Expires: 11/19/2024 [facility] Comment on above: Expected: 11/19/2023 (Approximate), Expires: 11/19/2024 Start: 11-19-2023 End: 11-19-2024 Urinalysis complete panel - Urine Urinalysis with reflex microscopic (clean catch) Lab Routine Primary hypertension (CMS/HCC) Expected: 11/19/2023 (Approximate), Expires: 11/19/2024 [facility] Comment on above: Expected: 11/19/2023 (Approximate), Expires: 11/19/2024 Start: 1990 Screening for malign ant neoplasm of cervix [facility] Start: 1981 Screening for malign ant neoplasm of cervix Pap Smear [facility] Start: 1960 Screening for malign ant neoplasm of colon [facility] Healthcare Payers Date Payer Category Payer Managed Care HMO (unspecified) [employer] A[employer] [id number] 2023-Present [address] [place] [address] HMO [id number] 2023 Private Health Insurance [id number] 2021 Medicaid MEDICAID [facility] [id number] 2021-Present [phone] [address] [place] [address] Medicaid [id number] 1960 Unknown [id number] 1960 Unknown [id number] 1960 Unknown [id number] 1960 Unknown [id number] 1960 Unknown [id number] 1960 Unknown [id number] 1959 Medicaid [id number] 1959 Medicare [id number] 1959 Medicare [id number] Social History Date Type Detail Facility [facility]: [facility] History of tobacco use Cigarette Smoker [facility] Start: 03-27-2023 End: 11-19-2023 Cigarettes smoked current (pack per day) - Reported 0.5 [facility] Start: 03-27-2023 Tobacco use and exposure Smoke less tobacco non-user [facility] Start: 11-19-2023 Tobacco use panel [facility] Start: 1960 Sex Assigned At Not on file [facility] History of Present illness Narrative 11-19-2023 Livia Villegas NP - 11/19/2023 3:08 PM Bhavya Villegas, MADELEINE - 11/19/2023 3:04 PM Bhavya Villegas, MADELEINE - 11/19/2023 3:03 PM Bhavya Villegas, MADELEINE - 11/19/2023 3:03 PM EST Note Date & Type Note Facility 11-19-2023 History of Presen t illness Narrative Associated Problem(s): Trigger middle finger of right hand Refer to Ortho for evaluation Associated Problem(s): Tobacco user Would like to quit smoking Would like to restart patches, has used in the past Associated Problem(s): Environmental allergies No changes in meds Associated Problem(s): Mixed hyperlipidemia (CMS/HCC) Check labs Associated Problem(s): Gastroesophageal reflux disease Stable on current meds no changes Quit smoking Check labs Associated Problem(s): Hypertension (CMS/HCC) Check labs Refill meds Trigger finger on right hand but not wanting surgery Needs refills on everything Asking for a patch to help quit smoking Images from the original note were not included. Lexii Luciano is a 62 y.o. female presents with chief complaint of No chief complaint on file. HPI: Also has trigger finger to right middle finger Hypertension This is a chronic problem. The current episode started more than 1 year ago. The problem is unchanged. The problem is controlled. Associated symptoms include anxiety. Pertinent negatives include no chest pain, headaches, palpitations, peripheral edema or shortness of breath. There are no associated agents to hypertension. Risk factors for coronary artery disease include smoking/tobacco exposure. Past treatments include calcium channel blockers and beta blockers. There are no compliance problems. SUBJECTIVE: MEDICATIONS: Current Outpatient Medications Medication Instructions albuterol HFA 90 mcg/act inhaler 2 puffs, Inhalation, Every 6 hours PRN, Inhale 2 puffs every 4 (four) hours if needed for wheezing. cholecalciferol (VITAMIN D-3) 2,000 Units, Oral, Daily FLUTICASONE PROPIONATE, NASAL, NA Fluticasone Propionate Zymlxnznaco-Zfaezutxi-Vgshod (Trelegy Ellipta) 200-62.5-25 MCG/ACT aerosol powder 1 puff, Inhalation, Daily metoprolol succinate XL (TOPROL-XL) 50 mg, Oral, Daily, Do not crush or chew. montelukast (SINGULAIR) 10 mg, Oral, Nightly nicotine (Nicoderm, Step 1) 21 MG/24HR patch 1 patch, Transdermal, Every 24 hours, Replace patch each day, rotate sites to avoid skin irritation NIFEdipine CC (ADALAT CC) 90 mg, Oral, Daily before breakfast, Do not crush, chew, or split.Take 90 mg by mouth in the morning. Take before meals. Do not crush, chew, or split.. ALLERGIES: Allergies Allergen Reactions Famotidine Cough REVIEW OF SYMPTOMS: Review of Systems Constitutional: Negative for appetite change, chills and fever. HENT: Positive for postnasal drip and rhinorrhea. Negative for congestion, ear pain and sore throat. Eyes: Negative for pain, discharge, redness and visual disturbance. Respiratory: Negative for cough, shortness of breath and wheezing. Cardiovascular: Negative for chest pain, palpitations and leg swelling. Gastrointestinal: Negative for abdominal pain, blood in stool, constipation, diarrhea, nausea and vomiting. Genitourinary: Negative for difficulty urinating, dysuria and frequency. Musculoskeletal: Negative for arthralgias, back pain, joint swelling and myalgias. Skin: Negative for rash and wound. Neurological: Negative for dizziness, tremors, seizures, syncope and headaches. Psychiatric/Behavioral: Positive for sleep disturbance. Negative for behavioral problems, self-injury and suicidal ideas. The patient is not nervous/anxious. Hematological: Does not bruise/bleed easily. Endocrine: Negative for polydipsia, polyphagia and polyuria. Allergic/Immunologic: Positive for environmental allergies. Negative for food allergies. PAST MEDICAL HISTORY Past Medical History: Diagnosis Date Anxiety 11/11/2023 Arthritis Cervical spinal stenosis 11/11/2023 Cervical spondylosis Chronic cough 11/11/2023 Chronic sinusitis CKD (chronic kidney disease) DDD (degenerative disc disease), cervical 11/11/2023 DDD (degenerative disc disease), lumbar Dyspnea Environmental allergies 11/11/2023 Environmental allergies 11/11/2023 Gastroesophageal reflux disease 11/11/2023 Hypertension (CMS/HCC) 11/11/2023 Shortness of breath on exertion Spondylolisthesis, cervical region Tobacco user 11/19/2023 History reviewed. No pertinent surgical history. Family history is unknown by patient. OBJECTIVE: Visit Vitals BP 112/78 (BP Location: Left arm, Patient Position: Sitting, BP Cuff Size: Adult) Pulse (!) 113 Temp 98 F (Temporal) Resp 18 Ht 4' 11 Wt 125 lb 9.6 oz SpO2 99% BMI 25.37 kg/m Smoking Status Every Day BSA 1.54 m Physical Exam Vitals reviewed. Constitutional: General: She is not in acute distress. Appearance: Normal appearance. HENT: Head: Normocephalic and atraumatic. Right Ear: Tympanic membrane, ear canal and external ear normal. Left Ear: Tympanic membrane, ear canal and external ear normal. Nose: Nose normal. Comments: palor Mouth/Throat: Mouth: Mucous membranes are moist. Eyes: Extraocular Movements: Extraocular movements intact. Conjunctiva/sclera: Conjunctivae normal. Cardiovascular: Rate and Rhythm: Normal rate and regular rhythm. Pulses: Normal pulses. Heart sounds: Normal heart sounds. Pulmonary: Effort: Pulmonary effort is normal. Breath sounds: Normal breath sounds. Abdominal: General: Bowel sounds are normal. There is no distension. Palpations: Abdomen is soft. There is no mass. Tenderness: There is no abdominal tenderness. Musculoskeletal: General: Normal range of motion. Cervical back: Normal range of motion and neck supple. Skin: General: Skin is warm and dry. Capillary Refill: Capillary refill takes 2 to 3 seconds. Findings: No rash. Neurological: General: No focal deficit present. Mental Status: She is alert and oriented to person, place, and time. Psychiatric: Mood and Affect: Mood normal. Behavior: Behavior normal. Thought Content: Thought content normal. Judgment: Judgment normal. ASSESSMENT AND PLAN: No follow-ups on file. Problem List Items Addressed This Visit Hypertension (CMS/HCC) - Primary Check labs Refill meds Relevant Medications metoprolol succinate XL (Toprol-XL) 50 MG 24 hr tablet NIFEdipine CC (Adalat CC) 90 MG 24 hr tablet Other Relevant Orders Comprehensive metabolic panel Microalbumin / creatinine, urine ratio Urinalysis with reflex microscopic (clean catch) Gastroesophageal reflux disease Stable on current meds no changes Quit smoking Check labs Relevant Orders CBC and differential Anxiety Relevant Orders TSH W/REFLEX TO FT4 Environmental allergies No changes in meds Relevant Medications albuterol HFA 90 mcg/act inhaler montelukast (Singulair) 10 MG tablet Mixed hyperlipidemia (CMS/HCC) Check labs Relevant Orders Lipid panel Tobacco user Would like to quit smoking Would like to restart patches, has used in the past Relevant Medications nicotine (Nicoderm, Step 1) 21 MG/24HR patch Trigger middle finger of right hand Refer to Ortho for evaluation documented in this encounter [facility] Evaluation note Note Date & Type Note Facility Evaluation note Diagnosis Primary hypertension (CMS/HCC)- Primary Unspecified essential hypertension Gastroesophageal reflux disease, unspecified whether esophagitis present Mixed hyperlipidemia (CMS/HCC) Mixed hyperlipidemia Environmental allergies Other allergy, other than to medicinal agents Anxiety Anxiety state, unspecified Tobacco user Tobacco use disorder Trigger middle finger of right hand documented in this encounter [facility] Reason for referral (narrative) Consultation (Routine) - Pending Review Note Date & Type Note Facility Reason for referral (narrati ve) Specialty Diagnoses / Procedures Referred By Marino terjo Referred To Contact Orthopaedic Surgery Diagnoses Trigger middle finger of right hand Livia Villegas NP [address] [place] [address] Jr. Bertram Carney DO [address] [address] Referral ID Status Reason Start Date Expiration Date Visits Requested Visits Authorized [id number] Pending Review Specialty Services Required 11/19/2023 05/17/2024 1 1 [facility] Summary Purpose Family History No Family History Records FoundNo Family History Records Found Advance Directives No Advanced Directives Records FoundNo Advanced Directives Records Found Additional Source Comments INFORMATION SOURCE (unrecogn ized section and content) DATE CREATED AUTHOR 03/22/2023 [facility] DATE CREATED AUTHOR AUTHOR'S ORGANIZ ATION 01/30/2024 [facility] Care Teams (unrecognized sec tion and content) Sales Ledger Clerk Relationship Specialty Start Date End Date Jason Subramanian MD [address] [place] [id number] PCP - General Family Medicine 11/19/23 Livia Villegas NP [address] [place] [address] Referring Physician Nurse Practitioner 05/01/23 FOR RECORDS PERTAINING TO PATIENTS WHO ARE OR HAVE BEEN ENROLLED IN A CHEMICAL DEPENDENCY/SUBSTANCEABUSE PROGRAM, SOME INFORMATION MAY BE OMITTED. This clinical summary was aggregated from multiple sources. Caution should be exercised in using it in the provision of clinical care. This summary normalizes information from multiple sources, and as a consequence, information in this document may materially change the coding, format and clinical context of patient data. In addition, data may be omitted in some cases. CLINICAL DECISIONS SHOULD BE BASED ON THE PRIMARY CLINICAL RECORDS. [facility] provides no warranty or guarantee of the accuracy or completeness of information in this document.
[2024-02-27 11:07] LABS: Basophils Absolute Auto 0.1 10^3/uL (0.0-0.1); Basophils Percent Auto 0.5 % (0.2-2.0); Eosinophils Absolute Auto 0.4 10^3/uL (0.0-0.7); Eosinophils Percent Auto 2.9 % (0.9-7.0); Hematocrit 41.3 % (36.0-48.0); Hemoglobin 13.3 g/dL (12.0-16.0); Immature Granulocytes Abs Auto 0.07 10^3/uL (0.00-0.03); Immature Granulocytes Pct Auto 0.5 % (0.0-0.5); Lymphocytes Absolute Auto 4.2 10^3/uL (1.2-3.8); Lymphocytes Percent Auto 32.8 % (20.5-60.0); Mean Corpuscular HGB Conc 32.2 g/dL (29.9-35.2); Mean Corpuscular Hemoglobin 27.7 pg (26.7-34.0); Mean Platelet Volume 10.4 fL (9.5-13.5); Monocytes Absolute Auto 0.6 10^3/uL (0.3-0.8); Monocytes Percent Auto 4.9 % (1.7-12.0); Neutrophils Absolute Auto 7.5 10^3/uL (1.4-6.5); Neutrophils Percent Auto 58.4 % (43.0-75.0); Platelet Count 446 10^3/uL (150-450); Red Cell Distribution Width 13.7 % (11.0-15.0); White Blood Count 12.9 10^3/uL (4.0-11.0)
[2024-02-27 11:31] LABS: Alanine Aminotransferase 21 U/L (14-59); Albumin Globulin Ratio 0.9; Albumin Level 3.4 g/dL (3.4-5.0); Alkaline Phosphatase 118 U/L (46-116); Anion Gap 12.7; Aspartate Amino Transferase 20 U/L (15-37); BUN Creatinine Ratio 16.5; Bilirubin Total 0.2 mg/dL (0.2-1.0); Calcium 9.4 mg/dL (8.5-10.1); Chloride 105 mmol/L (98-107); Estimated GFR (African America >60 (>=60); Estimated GFR (Non-African Ame 58 (>=60); Globulin 3.9 g/dL; Glucose 105 mg/dL (74-106); Potassium 4.7 mmol/L (3.5-5.1); Sodium 139 mmol/L (136-145); Total Protein 7.3 g/dL (6.4-8.2)
== END 2024-02-27 10:37 | disposition home or self-care (01) ==
LOC: LAB 10:38
PROVIDERS: PCP Nurse Practitioner; Visit Provider Nurse Practitioner
DX: R74.8 Abnormal levels of other serum enzymes (principal); R79.89 Other specified abnormal findings of blood chemistry; E87.6 Hypokalemia
CPT/HCPCS: 36415; 80053; 85025

== ENCOUNTER 2024-03-18 19:16 | Outpatient (REF) | payer MEDICARE, MEDICAID, SELFPAY ==
[2024-03-23 17:10] LABS: Age Gdln ACOG Testing Note (.); HPV Aptima Negative (Negative); IGP, Aptima HPV, rfx 16/18,45 Note (.)
== END 2024-03-18 19:17 | disposition home or self-care (01) ==
LOC: LAB 19:16
PROVIDERS: PCP Nurse Practitioner; Visit Provider Nurse Practitioner
DX: Z01.419 Encounter for gynecological examination (general) (routine) without abnormal findings (principal)
CPT/HCPCS: 87624; 88175

== ENCOUNTER 2024-06-30 14:53 | Outpatient (OUT) | payer MEDICARE, MEDICAID, SELFPAY | END 2024-06-30 14:54 | disposition home or self-care (01) | LOC: PST 14:54 | PROVIDERS: PCP Nurse Practitioner; Visit Provider Surgery | DX: Z01.818 Encounter for other preprocedural examination (principal); Z12.11 Encounter for screening for malignant neoplasm of colon ==

== ENCOUNTER 2024-07-07 09:17 | Day surgery (SDC) | payer OTHER, SELFPAY ==
--- NOTE | 2024-07-07 08:53 | W.PM.PROCNOT ---
Date of procedure: 07/07/24 Pre-op diagnosis: screening colonoscopy Procedure: Previous colonoscopy: 2013 procedure: screening colonoscopy The patient was given IV conscious sedation.? The patient's SPO2 remained above 90% throughout the procedure. The colonoscope was inserted per rectum and advanced under direct vision to the cecum without* difficulty.? The prep was good*.? Findings: Terminal ileum os: normal Cecum/Ascending colon: normal Transverse colon: normal Descending/Sigmoid colon: normal Rectum/Anus: examined in normal and retroflexed positions and was normal Withdrawal Time was (minutes): 8* The colon was decompressed and the scope was removed.? The patient tolerated the procedure well. Recommendations/Plan: 1.? Lifestyle and dietary modifications as discussed 2.? F/U Biopsies 3.? F/U in 4.? Discussed with the family Anesthesia: MAC Surgeon: Papito Quijano Condition: stable Disposition: PACU
[2024-07-07 09:25] VITALS: BP 186/75; PULSE 79; TEMP 36.3; O2SAT 100; BMI 26.0
--- OUTSIDE RECORDS SUMMARY | 2024-07-07 09:33 | XMS_ITS | CCD ---
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 Name Role Phone AICHHOLZ, GROOVER AND STRIPER OPERATOR ILVIA Primary Care Unavailable AICHHOLZ, GROOVER AND STRIPER OPERATOR LIVIA Admitting Unavailable AICHHOLZ, GROOVER AND STRIPER OPERATOR LIVIA Attending Unavailable AICHHOLZ, GROOVER AND STRIPER OPERATOR LIVIA Consulting Unavailable AICHHOLZ, GROOVER AND STRIPER OPERATOR LIVIA Consulting Unavailable AICHHOLZ, GROOVER AND STRIPER OPERATOR LIVIA Primary Care Unavailable AICHHOLZ, GROOVER AND STRIPER OPERATOR LIVIA Admitting Unavailable AICHHOLZ, GROOVER AND STRIPER OPERATOR LIVIA Attending Unavailable VINOD, DR CAMPOS Laws Consulting Unavailable AICHHOLZ, GROOVER AND STRIPER OPERATOR LIVIA Primary Care Unavailable [place], DR ALBAN Walters Consulting Unavailable AICHHOLZ, GROOVER AND STRIPER OPERATOR LIVIA Admitting Unavailable AICHHOLZ, GROOVER AND STRIPER OPERATOR LIVIA Attending Unavailable AICHHOLZ, GROOVER AND STRIPER OPERATOR LIVIA Consulting Unavailable AICHHOLZ, GROOVER AND STRIPER OPERATOR LIVIA Primary Care Unavailable AICHHOLZ, GROOVER AND STRIPER OPERATOR LIVIA Admitting Unavailable AICHHOLZ, GROOVER AND STRIPER OPERATOR LIVIA Attending Unavailable AICHHOLZ, GROOVER AND STRIPER OPERATOR LIVIA Consulting Unavailable ZIEBROEL, DR CAMPOS Laws Consulting Unavailable Aichholz METER CHANGES RECORDS CLERK, Livia Unavailable Jason Subramanian MD Primary Care Provider [phone] AICHHOLZ, LIVIA Attending Unavailable AICHHOLZ, LIVIA Attending Unavailable AICHHOLZ, LIVIA Attending Unavailable ALEXA COSME Attending Unavailable ALEXA COSME Attending Unavailable AICHHOLZ, LIVIA Attending Unavailable BASHIR TIJERINA Attending Unavailable Allergies Allergy Classification Reported Allergen(s) Allergy Type Date of Onset Reaction(s) Facility (2 sources) Famotidine Propensity to adverse reactions 3 Cough [facility] Work Phone: Medications Current Medications Medication Drug Class(es) Dates Sig (Normalized) Sig (Original) [id number] 200 actuat albuterol 0.09 mg/actuat metered dose [...] Hemoglobin (Bld) [Mass/Vol] 14.1 g/dL Normal 12.0-16.0 [facility] Comment on above: Performed By: #### H GB ####[facility] [address] [place], [place] [address]Bm. Neno Bhandari MG MAMM SCREEN 3D SHAWN CADon 02-12-2023 MG MAMM SCREEN 3D SHAWN CAD Patient: LEXII LUCIANO Exam Date: 02/12/2023 : 1960 Gender:F Ordering : XIOMARA LIVIA MARSHVel GROOVER AND STRIPER OPERATOR Admission #: [id number] Family : Order #: [id number] CLICK HERE TO VIEW EXAM RADIOLOGY REPORT PROCEDURE: MAMMOGRAM SCREENING 3D BILATERAL CAD COMPARISON: None. INDICATIONS: Screening mammography Calculator Name NCI Breast Cancer Risk Assessment Tool 5 Year Breast Cancer Risk Not Reported. Lifetime Breast Cancer Risk Not Reported. Personal Breast Cancer No Personal Ovarian Cancer No Treatments None Family Cancers None LOCATION: [facility] BREAST COMPOSITION: Scattered areas fibroglandular density. [...] Crowley M.D. on 03/13/2023 at 12:00 Normal [facility] MRI CSPINE WO CONon -29-20 [facility]: MRI CSP INE WO [...] by: ALBAN JIN Date: 2022-07-12 17:49 Normal [facility] XR CHEST 2 Von 05-15-2022 XR CHEST [...] by: CAMPOS CROWLEY Date: 2022-05-15 10:29 Normal [facility] XR CSPINE 2_3 VIEWSon 2021 XR [...] by: CAMPOS CROWLEY Date: 2022-05-15 10:25 Normal [facility] XR LSPINE 2_3 VIEWSon 2021 XR LSPINE [...] by: CAMPOS CROWLEY Date: 2022-05-15 10:30 Normal [facility] PTH INTACTon 05-11-2022 PTH, Intact 39 pg/mL Normal 15-65 [facility] Comment on above: Performed By: #### P THINT #### [facility] [address] [place] [address] Dr. Neno Bhandari CBC AUTO DIFFon 05-10-2022 BASO # 0.1 103/ul Normal 0.0-0.1 [facility] Comment on above: Performed By: #### C BC #### [facility] [address] [place] [address] Dr. Neno Bhandari Basophils/100 WBC (Bld) 0.9 % Normal 0.2-2.0 [facility] Comment on above: Performed By: #### C BC #### [facility] [address] [place] [address] Dr. Neno Bhandari EO # 0.4 103/ul Normal 0.0-0.7 [facility] Comment on above: Performed By: #### C BC #### [facility] [address] [place] [address] Dr. Neno Bhandari Eosinophils/100 WBC (Bld) 2.9 % Normal 0.9-7.0 [facility] Comment on above: Performed By: #### C BC #### [facility] [address] [place] [address] Dr. Neno Bhandari Erythrocyte distribution width (RBC) [Ratio] 14.2 % Normal 11.0-15.0 [facility] Comment on above: Performed By: #### C BC #### [facility] [address] [address] [address] Neno Bhandari Hematocrit (Bld) [Volume fraction] 40.8 % Normal 36.0-48.0 [facility] Comment on above: Performed By: #### C BC #### [facility] [address] [address] [address] Neno Bhandari Hemoglobin (Bld) [Mass/Vol] 13.4 g/dL Normal 12.0-16.0 [facility] Comment on above: Performed By: #### C BC #### [facility] [address] [place] [address] Dr. Neno Bhandari IG # 0.06 10e3/ul Critically high 0.00-0.03 [facility] Comment on above: Performed By: #### C BC #### [facility] [address] [place] [address] Dr. Neno Bhandari IG % 0.5 % Normal 0.0-0.5 [facility] Comment on above: Performed By: #### C BC #### [facility] [address] [place] [address] Dr. Neno Bhandari LYMPH # 3.9 103/ul Critically high 1.2-3.8 [facility] Comment on above: Performed By: #### C BC #### [facility] [address] [place] [address] Dr. Neno Bhandari Lymphocytes/100 WBC (Bld) 30.7 % Normal 20.5-60.0 [facility] Comment on above: Performed By: #### C BC #### [facility] [address] [place] [address] Dr. Neno Bhandari MANUAL DIFF REQ NO Normal [facility] Comment on above: Performed By: #### C BC #### [facility] [address] [place] [address] Dr. Neno Bhandari MCH (RBC) [Entitic mass] 28.3 pg Normal 26.7-34.0 [facility] Comment on above: Performed By: #### C BC #### [facility] [address] [address] [address] Neno Bhandari MCHC (RBC) [Mass/Vol] 32.8 g/dL Normal 29.9-35.2 [facility] Comment on above: Performed By: #### C BC #### [facility] [address] [address] [address] Neno Bhandari MCV (RBC) [Entitic vol] 86.3 fL Normal 81.0-99.0 [facility] Comment on above: Performed By: #### C BC #### [facility] [address] [address] [address] Neno Bhandari MONO # 0.5 103/ul Normal 0.3-0.8 [facility] Comment on above: Performed By: #### C BC #### [facility] [address] [place] [address] Dr. Neno Bhandari Monocytes/100 WBC (Bld) 4.1 % Normal 1.7-12.0 [facility] Comment on above: Performed By: #### C BC #### [facility] [address] [place] [address] Dr. Neno Bhandari NEUT # 7.7 103/ul Critically high 1.4-6.5 [facility] Comment on above: Performed By: #### C BC #### [facility] [address] [place], [place] [id number] Dr. Neno Bhandari Neutrophils/100 WBC (Bld) 60.9 % Normal 43.0-75.0 [facility] Comment on above: Performed By: #### C BC #### [facility] [address] [place] [address] Dr. Neno Bhandari Platelet mean volume (Bld) [Entitic vol] 11.1 fL Normal 9.5-13.5 [facility] Comment on above: Performed By: #### C BC #### [facility] [address] [place] [address] Dr. Neno Bhandari PLT 392 103/ul Normal 150-450 [facility] Comment on above: Performed By: #### C BC #### [facility] [address] [address] [address] Neno Bhandari RBC 4.73 106/ul Normal 4.20-5.40 [facility] Comment on above: Performed By: #### C BC #### [facility] [address] [address] [address] Neno Bhandari WBC 12.6 103/ul Critically high 4.0-11.0 [facility] Comment on above: Performed By: #### C BC #### [facility] [address] [address] [address] Neno Bhandari LIPID PROFILEon 05-10-2022 CHOL-HDL RATIO NORM SEE BELOW Normal [facility] Comment on above: Result Comment: 3.3 - 4.4 LOW RISK 4.4 - 7.1 AVERAGE RISK 7.1 - 11.0 MODERATE RISK >11.0 HIGH RISK Performed By: #### P HOS, CMP, LIPID #### [facility] [address] [address] [address] Neno Bhandari Cholesterol [Mass/Vol] 211 mg/dL Critically high <=200 [facility] Comment on above: Performed By: #### P HOS, CMP, LIPID #### [facility] [address] [address] [address] Neno Bhandari Cholesterol in HDL [Mass/Vol] 50 mg/dL Normal 40-60 [facility] Comment on above: Performed By: #### P HOS, CMP, LIPID #### [facility] [address] [address] [address] Neno Bhandari Cholesterol in LDL [Mass/Vol] 137.4 mg/dL Normal [facility] Comment on above: Performed By: #### P HOS, CMP, LIPID #### [facility] [address] [address] [address] Neno Bhandari Cholesterol.total/ Cholesterol in HDL [Mass ratio] 4.2 {ratio} Normal [facility] Comment on above: Performed By: #### P HOS, CMP, LIPID #### [facility] [address] [address] [address] Neno Bhandari HDL NORMAL > or = 60 mg/dl - LO W CARDIOVASCULAR RISK <40 mg/dl - HIGH CARDIOVASCULAR RISK Normal [facility] Comment on above: Performed By: #### P HOS, CMP, LIPID #### [facility] [address] [id number] [address] Neno Bhandari LDL CALC NORMAL SEE BELOW Normal [facility] Comment on above: Result Comment: <100 mg/dl OPTIMAL 100 - 129 mg/dl NEAR OR ABOVE OPTIMAL 130 - 159 mg/dl BORDERLINE HIGH 160 - 189 mg/dl HIGH >190 mg/dl VERY HIGH Performed By: #### P HOS, CMP, LIPID #### [facility] [address] [address] [address] Neno Bhandari Triglyceride [Mass/Vol] 118 mg/dL Normal <=150 [facility] Comment on above: Performed By: #### P HOS, CMP, LIPID #### [facility] [address] [address] [address] Neno Bhandari VLDL CALC 23.6 mg/dL Normal [facility] Comment on above: Performed By: #### P HOS, CMP, LIPID #### [facility] [address] [address] [address] Neno Bhandari PHOSPHORUSon 05-10-2022 Phosphate [Mass/Vol] 2.9 mg/dL Normal 2.6-4.7 [facility] Comment on above: Performed By: #### P HOS, CMP, LIPID #### [facility] [address] [address] [address] Neno Bhandari PROF 14(COMP METB)on 022 Albumin [Mass/Vol] 3.7 g/dL Normal 3.4-5.0 [facility] Comment on above: Performed By: #### P HOS, CMP, LIPID #### [facility] [address] [address] [address] Neno Bhandari Albumin/Globulin [Mass ratio] 1.1 {ratio} Normal [facility] Comment on above: Performed By: #### P HOS, CMP, LIPID #### [facility] [address] [address] [address] Neno Bhandari ALP [Catalytic activity/Vol] 70 U/L Normal 46-116 [facility] Comment on above: Performed By: #### P HOS, CMP, LIPID #### [facility] [address] [address] [address] Neno Bhandari ALT [Catalytic activity/Vol] 16 U/L Normal 14-59 [facility] Comment on above: Performed By: #### P HOS, CMP, LIPID #### [facility] [address] [address] [address] Neno Bhandari Anion gap [Moles/Vol] 14.1 mmol/L Normal [facility] Comment on above: Performed By: #### P HOS, CMP, LIPID #### [facility] [address] [address] [address] Neno Bhandari AST [Catalytic activity/Vol] 21 U/L Normal 15-37 [facility] Comment on above: Performed By: #### P HOS, CMP, LIPID #### [facility] [address] [address] [address] Neno Bhandari Bilirubin [Mass/Vol] 0.4 mg/dL Normal 0.2-1.0 [facility] Comment on above: Performed By: #### P HOS, CMP, LIPID #### [facility] [address] [address] [address] Neno Bhandari Calcium [Mass/Vol] 8.8 mg/dL Normal 8.5-10.1 [facility] Comment on above: Performed By: #### P HOS, CMP, LIPID #### [facility] [address] [address] [address] Neno Bhandari Chloride [Moles/Vol] 108 mmol/L Critically high 98-107 [facility] Comment on above: Performed By: #### P HOS, CMP, LIPID #### [facility] [address] [address] [address] Neno Bhandari CO2 [Moles/Vol] 23.5 mmol/L Normal 21.0-32.0 [facility] Comment on above: Performed By: #### P HOS, CMP, LIPID #### [facility] [address] [address] [address] Neno Bhandari Creatinine [Mass/Vol] 0.77 mg/dL Normal 0.55-1.02 [facility] Comment on above: Performed By: #### P HOS, CMP, LIPID #### [facility] [address] [place] [address] Dr. Neno Bhandari EGFR-AF GAMBIAN >60 Normal >=60 [facility] Comment on above: Performed By: #### P HOS, CMP, LIPID #### [facility] [address] [address] [address] Neno Bhandari EGFR-NON AF GAMBIAN >60 Normal >=60 [facility] Comment on above: Performed By: #### P HOS, CMP, LIPID #### [facility] [address] [place] [address] Dr. Neno Bhandari Globulin (S) [Mass/Vol] 3.5 g/dL Normal [facility] Comment on above: Performed By: #### P HOS, CMP, LIPID #### [facility] [address] [place] [address] Dr. Neno Bhandari Glucose [Mass/Vol] 104 mg/dL Normal 74-106 [facility] Comment on above: Performed By: #### P HOS, CMP, LIPID #### [facility] [address] [place] [address] Dr. Neno Bhandair Potassium [Moles/Vol] 3.6 mmol/L Normal 3.5-5.1 [facility] Comment on above: Performed By: #### P HOS, CMP, LIPID #### [facility] [address] [place] [address] Dr. Neno Bhandari Protein [Mass/Vol] 7.2 g/dL Normal 6.4-8.2 [facility] Comment on above: Performed By: #### P HOS, CMP, LIPID #### [facility] [address] [place] [address] Dr. Neno Bhandari Sodium [Moles/Vol] 142 mmol/L Normal 136-145 [facility] Comment on above: Performed By: #### P HOS, CMP, LIPID #### [facility] [address] [place] [address] Dr. Neno Bhandari Urea nitrogen [Mass/Vol] 14.0 mg/dL Normal 7.0-18.0 [facility] Comment on above: Performed By: #### P HOS, CMP, LIPID #### [facility] [address] [address] [address] Neno Bhandari Urea nitrogen/Creatinin e [Mass ratio] 18.2 mg/mg Normal [facility] Comment on above: Performed By: #### P HOS, CMP, LIPID #### [facility] [address] [address] [address] Neno Bhandari UA RANDOM W/MICROSCOPICon BACTERIA NONE SEEN Normal NONE SEEN [facility] Comment on above: Performed By: #### U AMIC ####[facility] [address] [address]Dr. Neno Bhandari Bilirubin Ql (U) Negative Normal NEGATIVE [facility] Comment on above: Performed By: #### U AMIC ####[facility] [address] [place], [place] [address]Dr. Neno Bhandari CA OX CRYSTALS MODERATE Normal [facility] Comment on above: Performed By: #### U AMIC ####[facility] [address] [place], [place] [address]Dr. Neno Bhandari CAST NONE SEEN Normal NONE SEEN [facility] Comment on above: Performed By: #### U AMIC ####[facility] [address] [address]Dr. Neno Bhandari Clarity (U) CLEAR Normal CLEAR [facility] Comment on above: Performed By: #### U AMIC ####[facility] [address] [address]Dr. Neno Bhandari Color (U) LT. YELLOW Normal YELLOW [facility] Comment on above: Performed By: #### U AMIC ####[facility] [address] [address]Dr. Neno Bhandari Crystals LM Nom (Urine sed) SEEN Abnormal NONE SEEN [facility] Comment on above: Performed By: #### U AMIC ####[facility] [address] [address]Dr. Neno Bhandari Epithelial cells LM Ql (Urine sed) RARE Normal NONE SEEN /RARE [facility] Comment on above: Performed By: #### U AMIC ####[facility] [address] [address]Dr. Neno Bhandari Glucose Ql (U) Negative Normal NEGATIVE [facility] Comment on above: Performed By: #### U AMIC ####[facility] [address] [place], [place] [address]Dr. Neno Bhandari Hemoglobin Ql (U) TRACE-INTACT Abnormal NEGATIVE [facility] Comment on above: Performed By: #### U AMIC ####[facility] [address] [place], [place] [address]Dr. Neno Bhandari Ketones Ql (U) Negative Normal NEGATIVE [facility] Comment on above: Performed By: #### U AMIC ####[facility] [address] [place], [place] [address]Dr. Neno Bhandari LEUKOCYTES Negative Normal NEGATIVE [facility] Comment on above: Performed By: #### U AMIC ####[facility] [address] [place], [place] [address]Dr. Neno Bhandari MUCOUS NONE SEEN Normal NONE SEEN [facility] Comment on above: Performed By: #### U AMIC ####[facility] [address] [place], [place] [address]Dr. Neno Bhandari Nitrite Ql (U) Negative Normal NEGATIVE [facility] Comment on above: Performed By: #### U AMIC ####[facility] [address] [place], [place] [address]Dr. Neno Bhandari pH (U) 7.0 [pH] Normal 5-9 [facility] Comment on above: Performed By: #### U AMIC ####[facility] [address] [place], [place] [address]Dr. Neno Bhandari RBC 0-2 Normal 0-2 [facility] Comment on above: Performed By: #### U AMIC ####[facility] [address] [place], [place] [address]Dr. Neno Bhandari SPEC GRAVITY 1.020 Normal 1.005-<=1.025 [facility] Comment on above: Performed By: #### U AMIC ####[facility] [address] [place], [place] [address]Qq. Neno Bhandari UA PROTEIN Negative Normal NEGATIVE/ TRACE [facility] Comment on above: Performed By: #### U AMIC ####[facility] [address] [place], [place] [address]Jq. Neno Bhandari Urobilinogen Qn (U) 0.2 {Camille'U}/dL Normal 0.2 - 1.0 [facility] Comment on above: Performed By: #### U AMIC ####[facility] [address] [id number]. Neno Bhandari WBC 0-2 Abnormal NONE SEEN [facility] Comment on above: Performed By: #### U AMIC ####[facility] [address] [id number]. Neno Bhandari Vital Signs Date Time Vital Sign Value Performing Clinician Faci lity 11-19-2023 14:30-0500 Body height 149.9 cm Livia Villegas METER CHANGES RECORDS CLERK Work Phone: [facility] 11-19-2023 14:30-0500 Body mass index (BMI) [Ratio] 25.37 kg/m2 Livia Villegas METER CHANGES RECORDS CLERK Work Phone: [facility] 11-19-2023 14:30-0500 Body temperature 98.01 [degF] Livia Villegas METER CHANGES RECORDS CLERK Work Phone: [facility] 11-19-2023 14:30-0500 Body weight 56.97 kg Livia Villegas METER CHANGES RECORDS CLERK Work Phone: [facility] 11-19-2023 14:30-0500 Diastolic blood pressure 78 mm[Hg] Livia Villegas METER CHANGES RECORDS CLERK Work Phone: [facility] 11-19-2023 14:30-0500 Heart rate 113 /min Livia Villegas METER CHANGES RECORDS CLERK Work Phone: [facility] 11-19-2023 14:30-0500 Respiratory rate 18 /min Livia Aichholz METER CHANGES RECORDS CLERK Work Phone: [facility] 11-19-2023 14:30-0500 SaO2% (BldA) [Mass fraction] 99 % Livia Aichholz METER CHANGES RECORDS CLERK Work Phone: [facility] 11-19-2023 14:30-0500 Systolic blood pressure 112 mm[Hg] Livia Aichholz METER CHANGES RECORDS CLERK Work Phone: [facility] Healthcare Encounters Encounter Date Encounter Type Care Provider Facility Start: 06-22-2024 End: 06-22-2024 ambulatory BASHIR TIJERINA Not Available Start: 06-18-2024 End: 06-18-2024 ambulatory LIVIA AICHHOLZ Not Available Start: 05-12-2024 End: 05-12-2024 ambulatory ALEXA COSME Not Available Start: 04-14-2024 End: 04-14-2024 ambulatory ALEXA COSME Not Available Start: 03-18-2024 End: 03-18-2024 ambulatory LIVIA AICHHOLZ Not Available Start: 01-29-2024 End: 01-29-2024 ambulatory LIVIA AICHHOLZ Not Available Start: 11-19-2023 End: 11-19-2023 Office outpatient visit 25 minutes Livia Aichholz METER CHANGES RECORDS CLERK Work Phone: [facility] Comment on above: Primary hypertension (CMS/HCC) (Primary Dx); Gastroesophageal reflux disease, unspecified whether esophagitis present; Mixed hyperlipidemia (CMS/HCC); Environmental allergies; Anxiety; Tobacco user; Trigger middle finger of right hand Start: 11-19-2023 End: 11-19-2023 ambulatory LIVIA AICHHOLZ Not Available Start: 02-12-2023 End: 02-13-2023 ambulatory GROOVER AND STRIPER OPERATOR LIVIA AICHHOLZ Facility:[facility] Start: 07-12-2022 End: 07-13-2022 ambulatory GROOVER AND STRIPER OPERATOR LIVIA AICHHOLZ Facility:[facility] Start: 05-14-2022 End: 05-15-2022 ambulatory GROOVER AND STRIPER OPERATOR LIVIA AICHHOLZ Facility:[facility] Start: 05-10-2022 End: 05-11-2022 ambulatory GROOVER AND STRIPER OPERATOR LIVIA ISABELA Facility:[facility] Procedures Date Procedure Procedure Detail Performing Clinician Start: 03-13-2023 Mammography Livia norwood [employer] RECORDS CLERK Work Phone: Plan of Treatment Date Care Activity Detail Author Start: 03-13-2024 Screening for malign ant neoplasm of breast Mammogram [facility] Start: 12-25-2023 End: 12-25-2023 Patient encounter procedure 12/25/2023 2:00 PM EDT Office Visit [facility] [address] [place] [address] Livia Villegas, MADELEINE [address] [place] [id number] [facility] Start: 11-19-2023 End: 11-19-2024 CBC W Auto Differential panel - Blood CBC and differential Lab Routine Gastroesophageal reflux disease, unspecified whether esophagitis present Expected: 11/19/2023 (Approximate), Expires: 11/19/2024 [facility] Work Phone: Comment on above: Expected: 11/19/2023 (Approximate), Expires: 11/19/2024 Start: 11-19-2023 End: 11-19-2024 Comprehensive metabolic 2000 panel - Serum or Plasma Comprehensive metabolic panel Lab Routine Primary hypertension (CMS/HCC) Expected: 11/19/2023 (Approximate), Expires: 11/19/2024 [facility] Comment on above: Expected: 11/19/2023 (Approximate), Expires: 11/19/2024 Start: 11-19-2023 End: 11-19-2024 Lipid 1996 panel - Serum or Plasma Lipid panel Lab Routine Mixed hyperlipidemia (CMS/HCC) Expected: 11/19/2023 (Approximate), Expires: 11/19/[address] [facility] Comment on above: Expected: 11/19/2023 (Approximate), Expires: 11/19/2024 Start: 11-19-2023 End: 11-19-2024 Microalbumin/Creatinine panel in random Urine Microalbumin / creatinine, urine ratio Lab Routine Primary hypertension (CMS/HCC) Expected: 11/19/2023 (Approximate), Expires: 11/19/2024 [facility] Comment on above: Expected: 11/19/2023 (Approximate), Expires: 11/19/2024 Start: 11-19-2023 End: 11-19-2024 TSH W/REFLEX TO FT4 TSH W/REFLEX TO FT4 Lab Routine Anxiety Expected: 11/19/2023 (Approximate), Expires: 11/19/2024 [facility] Comment on above: Expected: 11/19/2023 (Approximate), Expires: 11/19/2024 Start: 11-19-2023 End: 11-19-2024 Urinalysis complete panel - Urine Urinalysis with reflex microscopic (clean catch) Lab Routine Primary hypertension (CMS/HCC) Expected: 11/19/2023 (Approximate), Expires: 11/19/2024 [facility] Comment on above: Expected: 11/19/2023 (Approximate), Expires: 11/19/2024 Start: 1990 Screening for malign ant neoplasm of cervix [facility] Start: 1981 Screening for malign ant neoplasm of cervix Pap Smear [facility] Start: 1960 Screening for malign ant neoplasm of colon [facility] Payers Date Payer Category Payer Unknown [id number] 2023 Managed Care HMO (unspecified) AETNA AETNA [id number] 2023-Present [address] [place] [address] HMO [id number] 2023 Medicare [id number] 2021 Medicaid MEDICAID [facility] [id number] 2021-Present [phone] [address] [place] [address] Medicaid [id number] 1960 Unknown [id number] 93 1960 Unknown [id number] [id number] 93 1960 Unknown [id number] [id number] 93 1960 Unknown [id number] 2.16.840.1.710944.3.579.2.5 93 1960 Unknown [id number] 2.16.840.1.820329.3.579.2.1 259 1960 Unknown [id number] 2.16.840.1.255785.3.579.2.1 259 1960 Unknown [id number] 2.16.840.1.737283.3.579.2.1 259 1960 Unknown [id number] 2.16.840.1.509570.3.579.2.1 259 1960 Unknown [id number] 2.16.840.1.078916.3.579.2.1 259 1960 Unknown [id number] 2.16.840.1.145820.3.579.2.1 259 1960 Unknown [id number] [id number] 259 1959 Medicaid [id number] 1959 Medicare [id number] 1959 Medicare [id number] Social History Date Type Detail Facility Start: 03-27-2023 Tobacco smoking stat [facility] Smokes tobacco daily [facility] History of [...] Villegas NP - 11/19/2023 3:08 PM Bhavya Villegas NP - 11/19/2023 3:04 PM Bhavya Villegas NP - 11/19/2023 3:03 PM Bhavya Villegas NP - 11/19/2023 3:03 PM EST Note Date [...] Daily FLUTICASONE PROPIONATE, NASAL, NA Fluticasone Propionate Aihrrrxuqrc-Bnsgeotlr-Wyanfz (Trelegy Ellipta) 200-62.5-25 MCG/ACT aerosol powder 1 [...] Specialty Diagnoses / Procedures Referred By Marino trejo Referred To Contact Orthopaedic Surgery Diagnoses Trigger middle finger of right hand Livia Villegas NP [address] [place] [address] Stepanic, Jr. Bertram C, DO [address] [place] [address] Referral ID Status Reason Start Date Expiration Date Visits Requested Visits Authorized [id number] Pending Review Specialty Services Required 11/19/2023 05/17/2024 1 1 [facility] Summary Purpose Family History No Family History Records FoundNo Family History Records Found Advance Directives No Advanced Directives Records FoundNo Advanced Directives Records Found Additional Source Comments INFORMATION SOURCE (unrecogn ized section and content) DATE CREATED AUTHOR 03/22/2023 [facility] DATE CREATED AUTHOR AUTHOR'S ORGANIZ ATION 06/23/2024 [facility] Care Teams (unrecognized sec tion and content) [employer] Art Teacher Relationship Specialty Start Date End Date Jason Subramanian MD [address] [place] [address] PCP - General Family Medicine 11/19/23 Livia Villegas NP [address] [place] [address] Referring Physician Nurse Practitioner 05/01/23 [...] BE BASED ON THE PRIMARY CLINICAL RECORDS. [email or web address] provides no warranty or guarantee of the accuracy or completeness of information in this document.
[2024-07-07] MEDS: LACTATED RINGER'S SOLUTION 1,000 ML 50 ML IV (09:53)
--- NOTE | 2024-07-07 10:35 | PC.NURSE ---
Patient is cancelled related to incomplete prep. Patient to call office to get rescheduled. Reviewed prep instructions again with patient.
== END 2024-07-07 10:58 | disposition home or self-care (01) ==
LOC: SURGOUT 09:19
PROVIDERS: PCP Nurse Practitioner; Visit Provider Surgery
DX: Z12.11 Encounter for screening for malignant neoplasm of colon (principal); Z53.8 Procedure and treatment not carried out for other reasons
CPT/HCPCS: G0121

== ENCOUNTER 2025-05-17 11:18 | Outpatient (OUT) | payer MEDICARE, MEDICAID, SELFPAY ==
--- OUTSIDE RECORDS SUMMARY | 2025-05-03 17:00 | XMS_ITS | Encounter Summary ---
Author Organization [facility] Address [address] [facility] [place] [address] Care Team Providers Care Cooking Chef Name Role Phone Livia Villegas NP Unavailable [phone] Jason Subramanian MD Primary Care Provider [phone] Reason for Visit * Reason Comments Medicare Annual Wellness Visit Initial Encounter Details Date Type Department Care Team (Late st Contact Info) Description 05/03/2025 5:00 PM EDT Office Visit [facility] [address] [place] [address] Livia Villegas NP [address] [place] [address] Encounter for subsequent annual wellness visit (AWV) in Medicare patient (Primary Dx); Primary hypertension ; Gastroesophageal reflux disease, unspecified whether esophagitis present; Chronic kidney disease, stage 3a (CMS-HCC); Mixed hyperlipidemia ; JAD (generalized anxiety disorder) ; Encounter for screening mammogram for malignant neoplasm of breast; Cigarette nicotine dependence without complication; Current mild episode of major depressive disorder without prior episode ; Environmental allergies; Anxiety; Adjustment insomnia; Lung cancer screening declined by patient Social History Tobacco Use Types Packs/Day Years Used Date Smoking Tobacco: Every Day Cigarettes Smokeless Tobacco: Never Alcohol Use Standard Drinks/Week Comments Not Currently 0 (1 standard drink = 0.6 oz pur e alcohol) PHQ-2 Answer Date Recorded Patient Health Questionnaire-2 Score 2 05/03/2025 Comments Unknown Sex and Gender Information Value Date Recorded Sex Assigned at Not on file Legal Sex Female 11:52 PM EDT Gender Identity Not on file Sexual Orientation Not on file documented as of this encounter Last Filed Vital Signs Vital Sign Reading Time Taken Comments Blood Pressure 138/68 05/03/2025 4:53 PM EDT Pulse 80 05/03/2025 4:53 PM EDT Temperature 36.9 C (98.5 F) 05/03/2025 4:53 PM EDT Respiratory Rate 18 05/03/2025 4:53 PM EDT Oxygen Saturation 98% 05/03/2025 4:53 PM EDT Inhaled Oxygen Concentration - - Weight 57.6 kg (127 lb) 05/03/2025 4:53 PM EDT Height - - Body Mass Index 25.65 09/02/2024 1:03 PM EST documented in this encounter Functional Status * Over the past 2 weeks, how often have you been bothered by any of the following problems? Question Answer Date of Assessment Author Little interest or pleasure in doing things Several days 05/03/2025 4:56 PM EDT PAOLA MEHTA Feeling down, depressed, or hopeless Several days 05/03/2025 4:56 PM EDT PAOLA MEHTA Patient Health Questionnaire -2 Score 2 05/03/2025 4:56 PM EDT PAOLA MEHTA * Question Answer Date of Assessment Author Trouble falling or staying asleep, or sleeping too much More than half the days 05/03/2025 4:56 PM EDT JANET MEHTA Feeling tired or having little energy Several days 05/03/2025 4:56 PM EDT PAOLA MEHTA Poor appetite or overeating Not at all 05/03/2025 4:56 PM EDT PAOLA MEHTA A Feeling bad about yourself - or that you are a failure or have let yourself or your family down Not at all 05/03/2025 4:56 PM EDT PAOLA MEHTA Trouble concentrating on things, such as reading the newspaper or watching television Several days 05/03/2025 4:56 PM EDT PAOLA MEHTA A Moving or speaking so slowly that other people could have noticed? Or the opposite - being so fidgety or restless that you have been moving around a lot more than usual. Several days 05/03/2025 4:56 PM EDT APOLA MEHTA Thoughts that you would be better off or hurting yourself in some way Not at all 05/03/2025 4:56 PM EDT PAOLA MEHTA Patient Health Questionnaire-9 Score 7 05/03/2025 4:56 PM EDT JANET MEHTA documented as of this encounter Patient Instructions * Patient Instructions* Livia Villegas NP - 05/03/2025 5:00 PM EDT For depression/anxiety: we will try fluoxetine at 20mg daily Take medication only as directed. This medication will take approximately 4-6 weeks to become effective. If any suicidal thoughts, thoughts of hurting others, or hallucinations contact the office or proceed to the Emergency Room for mental health evaluation. Medication may cause dry mouth, dizziness, and in some cases worsening in depression symptoms. Please contact the office if these occur. Trazodone at bed time for sleep documented in this encounter Progress Notes * Livia Villegas NP - 05/03/2025 5:35 PM EDTAssociated Problem(s): Encounter for subsequent annual wellness visit (AWV) in Medicare patient Reviewed Ht/Wt/BMI Recommend eye exam yearly Recommend dental exams twice a year Balance work/leisure activities Exercises is recommended most days of the week (appropriate as chronic conditions allow) Follow up yearly and prn * Livia Villegas NP - 05/03/2025 5:30 PM EDTAssociated Problem(s): Lung cancer screening declined by patient Declined * JANET MEHTA - 05/03/2025 5:00 PM EDT Pt is needing prn albuterol inhaler. Pt would like to discuss quitting smoking Pt does not feel that the fluoxetine dosage is not working. * Livia Villegas, MADELEINE - 05/03/2025 5:00 PM EDT Images from the original note were not included. Jenna Luciano is a 64 y.o. female presents with chief complaint of Medicare Annual Wellness Visit Initial HPI: Diet: variety Activity: no Mental Health Concerns: anxiety, no memory issues Falls in the last year: no Still driving: yes Do you pay your bills: yes Any hearing problems:no Any Vision problems: wears glasses, last eye appt: 2024 Any Hospitalizations in the last year: no Specialist:no HCPOA/Living Will:no Concerns: Pt is needing prn albuterol inhaler. Pt would like to discuss quitting smoking Pt does not feel that the fluoxetine dosage is not working. SUBJECTIVE: MEDICATIONS: Current Outpatient Medications Medication Instructions albuterol HFA 90 mcg/act inhaler 2 puffs, Inhalation, Every 6 hours PRN cholecalciferol (VITAMIN D-3) 50 mcg, Oral, Daily FLUoxetine (PROZAC) 20 mg, Oral, Daily fluticasone (Flonase) 50 MCG/ACT nasal spray SPRAY 2 SPRAYS INTO EACH NOSTRIL EVERY DAY metoprolol succinate XL (TOPROL-XL) 50 mg, Oral, Daily, Do not crush or chew montelukast (SINGULAIR) 10 mg, Oral, Nightly NIFEdipine CC (ADALAT CC) 90 mg, Oral, Daily before breakfast, Do not crush, chew, or split.Take 90mg by mouth in the morning. Take before meals. Do not crush, chew, or split.. omeprazole (PRILOSEC) 20 mg, Oral, Daily before breakfast, Do not crush or chew. traZODone (DESYREL) 50 mg, Oral, Nightly ALLERGIES: Allergies Allergen Reactions Famotidine Cough REVIEW OF SYMPTOMS: Review of Systems Constitutional: Negative for appetite change, chills and fever. HENT: Negative for congestion, ear pain and sore [...] dizziness, tremors, seizures, syncope and headaches. Psychiatric/Behavioral: Negative for behavioral problems, self-injury and suicidal ideas. The patient is not nervous/anxious. Hematological: Does not bruise/bleed easily. Endocrine: Negative for polydipsia, polyphagia and polyuria. Allergic/Immunologic: Negative for environmental allergies and food allergies. PAST MEDICAL HISTORY Past Medical History: Diagnosis Date Anxiety 11/11/2023 Arthritis Cervical spinal stenosis 11/11/2023 Cervical spondylosis Chronic cough 11/11/2023 Chronic sinusitis CKD (chronic kidney disease) DDD (degenerative disc disease), cervical 11/11/2023 DDD (degenerative disc disease), lumbar Dyspnea Environmental allergies 11/11/2023 Environmental allergies 11/11/2023 Gastroesophageal reflux disease 11/11/2023 Hypertension 11/11/2023 Shortness of breath on exertion Spondylolisthesis, cervical region Tobacco user 11/19/2023 Past Surgical History: Procedure Laterality Date SECTION, CLASSIC Family history is unknown by patient. OBJECTIVE: Visit Vitals BP 138/68 (BP Location: Left arm, Patient Position: Sitting, BP Cuff Size: Adult long) Pulse 80 Temp 98.5 ??F (Temporal) Resp 18 Wt 127 lb SpO2 98% BMI 25.65 kg/m?? Smoking Status Every Day BSA 1.55 m?? Physical Exam Vitals and nursing note reviewed. Constitutional: General: She is not in acute distress. Appearance: Normal appearance. HENT: Head: Normocephalic and atraumatic. Right Ear: External ear normal. Left Ear: External ear normal. Nose: Nose normal. Mouth/Throat: Mouth: Mucous membranes are moist. Eyes: [...] normal. Judgment: Judgment normal. ASSESSMENT AND PLAN: Follow up in about 4 weeks (around 05/31/2025) for Recheck. Problem List Items Addressed This Visit Hypertension - Primary Please check blood pressure daily and record DASH diet Limit caffeine Take medication as directed Contact office if chest pain, pressure, dizziness, shortness of breath, swelling legs Recommend slow position changes Meds: metoprolol, Nifedipine Relevant Medications metoprolol succinate XL (Toprol-XL) 50 MG 24 hr tablet NIFEdipine CC (Adalat CC) 90 MG 24 hr tablet Other Relevant Orders Comprehensive metabolic panel Urinalysis with reflex microscopic (clean catch) Microalbumin / creatinine, urine ratio Gastroesophageal reflux disease Recommendations: freq small meals, nothing to eat or drink at least 2 hours prior to bed, limit caffeine, alcohol, as well as spicy foods Meds to limit or avoid if possible: NSAIDS Elevate HOB if possible Continue PPI Relevant Medications omeprazole (PriLOSEC) [address] capsule Other Relevant Orders CBC and differential Environmental allergies Relevant Medications albuterol HFA 90 mcg/act inhaler fluticasone (Flonase) 50 MCG/ACT nasal spray montelukast (Singulair) 10 MG tablet Mixed hyperlipidemia No current meds Check labs yearly Relevant Orders Comprehensive metabolic panel Lipid panel Encounter for screening mammogram for malignant neoplasm of breast Relevant Orders Bilateral screening mammogram Chronic kidney disease, stage 3a (CMS-HCC) Recommend good blood pressure control Avoid nephrotoxic meds if possible Check labs yearly and prn changes to meds or changes in sxs Relevant Medications cholecalciferol (Vitamin D-3) 50 MCG (1999) capsule Other Relevant Orders Comprehensive metabolic panel JAD (generalized anxiety disorder) Current med: fluoxetine Relevant Orders TSH Current mild episode of major depressive disorder without prior episode floxetine Relevant Medications FLUoxetine (PROzac) 20 MG capsule Cigarette nicotine dependence without complication The patient has been advised of the risks of continued smoking: stroke, MN, all forms of cancer, lung disease, and . Options for quitting smoking include: cold turkey, hypnosis, acupuncture, nicotine replacement meds(gum, lozenges, and patches), Buproprion, and Varenicline. At this time pt is encouraged to evaluate their goals for wanting to quit smoking, and reach out toprovider when ready to start this process Has used patch in the past Started smokinyo-present 50 years 2ppd, Does not want to do lung cancer screening Relevant Orders Urinalysis with reflex microscopic (clean catch) Adjustment insomnia Relevant Medications traZODone (Desyrel) 50 MG tablet Lung cancer screening declined by patient Declined Encounter for subsequent annual wellness visit (AWV) in Medicare patient Reviewed Ht/Wt/BMI Recommend eye exam yearly Recommend dental exams twice a year Balance work/leisure activities Exercises is recommended most days of the week (appropriate as chronic conditions allow) Follow up yearly and prn Anxiety Relevant Medications FLUoxetine (PROzac) 20 MG capsule * Livia Villegas NP - 05/03/2025 7:36 AM EDTAssociated Problem(s): Current mild episode of major depressive disorder without prior episode floxetine * Livia Villegas NP - 05/03/2025 7:35 AM EDTAssociated Problem(s): Cigarette nicotine dependence without complication The patient has been advised of the risks of continued smoking: stroke, MN, all forms of cancer, lung disease, and . Options for quitting smoking include: cold turkey, hypnosis, acupuncture, nicotine replacement meds(gum, lozenges, and patches), Buproprion, and Varenicline. At this time pt is encouraged to evaluate their goals for wanting to quit smoking, and reach out toprovider when ready to start this process Has used patch in the past Started smokinyo-present 50 years 2ppd, Does not want to do lung cancer screening * Livia Villegas NP - 05/03/2025 7:35 AM EDTAssociated Problem(s): JAD (generalized anxiety disorder) Current med: fluoxetine * Livia Villegas NP - 05/03/2025 7:35 AM EDTAssociated Problem(s): Mixed hyperlipidemia No current meds Check labs yearly * Livia Villegas NP - 05/03/2025 7:35 AM EDTAssociated Problem(s): Chronic kidney disease, stage 3a ([facility]CC) Recommend good blood pressure control Avoid nephrotoxic meds if possible Check labs yearly and prn changes to meds or changes in sxs * Livia Villegas NP - 05/03/2025 7:35 AM EDTAssociated Problem(s): Gastroesophageal reflux disease Recommendations: freq small meals, nothing to eat or drink at least 2 hours prior to bed, limit caffeine, alcohol, as well as spicy foods Meds to limit or avoid if possible: NSAIDS Elevate HOB if possible Continue PPI * Livia Villegas NP - 05/03/2025 7:34 AM EDTAssociated Problem(s): Hypertension Please check blood pressure daily and record DASH diet Limit caffeine Take medication as directed Contact office if chest pain, pressure, dizziness, shortness of breath, swelling legs Recommend slow position changes Meds: metoprolol, Nifedipine documented in this encounter Plan of Treatment Upcoming Encounters Date Type Department Care Team (Late st Contact Info) Description 06/01/2025 2:40 PM EDT Office Visit [facility] [address] [place] [address] Livia Villegas NP [address] [place] [address] 05/09/2026 4:30 PM EDT Office Visit [facility] [address] [place] [address] Livia Villegas NP [address] [place] [address] Scheduled Orders Name Type Priority Associated Diagnoses Orde r Schedule Bilateral screening mammogram Imaging Routine Encounter for screening mammogram for malignant neoplasm of breast Expected: 05/03/2025 (Approximate), Expires: 07/04/2026 CBC and differential Lab Routine Gastroesophageal reflux disease, unspecified whether esophagitis present Expected: 05/03/2025 (Approximate), Expires: 05/03/2026 Comprehensive metabolic panel Lab Routine Primary hypertension Chronic kidney disease, stage 3a (CMS-HCC) Mixed hyperlipidemia Expected: 05/03/2025 (Approximate), Expires: 05/03/2026 Lipid panel Lab Routine Mixed hyperlipidemia Expected: 05/03/2025 (Approximate), Expires: 05/03/2026 Urinalysis with reflex microscopic (clean catch) Lab Routine Primary hypertension Cigarette nicotine dependence without complication Expected: 05/03/2025 (Approximate), Expires: 05/03/2026 Microalbumin / creatinine, urine ratio Lab Routine Primary hypertension Expected: 05/03/2025 (Approximate), Expires: 05/03/2026 TSH Lab Routine JAD (generalized anxiety disorder) Expected: 05/03/2025 (Approximate), Expires: 05/03/2026 documented as of this encounter Visit Diagnoses Diagnosis Encounter for subsequent annual wellness visit (AWV) in Medicare patient- Primary Primary hypertension Unspecified essential hypertension Gastroesophageal reflux disease, unspecified whether esophagitis present Chronic kidney disease, stage 3a (CMS-HCC) Mixed hyperlipidemia Mixed hyperlipidemia JAD (generalized anxiety disorder) Generalized anxiety disorder Encounter for screening mammogram for malignant neoplasm of breast Cigarette nicotine dependence without complication Current mild episode of major depressive disorder without prior episode Environmental allergies Other allergy, other than to medicinal agents Anxiety Anxiety state, unspecified Adjustment insomnia Insomnia, unspecified Lung cancer screening declined by patient documented in this encounter Additional Health Concerns Assessment Noted Time PHQ-9 Depression Total Score: 7 05/03/20 25 4:56 PM EDT documented as of this encounter Care Teams Cooking Chef Relationship Specialty Start Date End Date Jason Subramanian MD [address] [place] [phone] PCP - General Family Medicine 11/19/23 Livia Villegas NP [address] [place] [address] Referring Physician Nurse Practitioner 05/01/23 documented as of this encounter
--- OUTSIDE RECORDS SUMMARY | 2025-05-17 11:27 | XMS_ITS | Encounter Summary ---
Author Organization [facility] Address [address] [place] [address] Care Team Providers Care Spray Gun Sizer Name Role Phone Jason Subramanian MD Primary Care Provider Livia Villegas NP Unavailable [phone] Jason Subramanian MD Primary Care Provider Jason Subramanian MD Unavailable Livia Villegas NP Unavailable [phone] Encounter Details Date Type Department Care Team ([facility] Contact Info) Description 11/10/2023 Abstract [facility] [address] [place] [address] Livia Villegas NP [address] [place] [address] Social History Tobacco Use Types Packs/Day Years Used Date Smoking Tobacco: Every Day Cigarettes Smokeless Tobacco: Never Comments Unknown Sex and Gender Information Value Date Recorded Sex Assigned at Not on file Legal Sex Female 11:52 PM EDT Gender Identity Not on file Sexual Orientation Not on file documented as of this encounter Plan of Treatment Upcoming Encounters Date Type Department Care Team ([facility] Contact Info) Description 06/01/2025 2:40 PM EDT Office Visit [facility] [address] [place] [address] Livia Villegas NP [address] [place] [address] 05/09/2026 4:30 PM EDT Office Visit [facility] [address] [place] [address] Livia Villegas, MADELEINE [address] [place] [address] documented as of this encounter Visit Diagnoses Not on filedocumented in this encounter Care Teams Spray Gun Sizer Relationship Specialty Start Date End Date Jason Subramanian MD PCP - General Family Medicine 05/01/23 11/18/23 Jason Subramanian MD [address] [place] [address] PCP - General Family Medicine 11/19/23 Jason Subramanian MD [address] [place] [address] PCP - Devoted 06/14/24 11/13/24 Livia Villegas NP [address] [place] [address] PCP - Aneta SWEENEY 11/14/24 03/13/25 Livia Villegas NP [address] [place] [address] Referring Physician Nurse Practitioner 05/01/23 documented as of this encounter
--- OUTSIDE RECORDS SUMMARY | 2025-05-17 11:27 | XMS_ITS | Encounter Summary ---
Author Organization [facility] Address [address] [place] [address] Care Team Providers Care Servicing Manager Name Role Phone Livia Villegas NP Unavailable [phone] Jason Subramanian MD Primary Care Provider [phone] Jason Subramanian MD Unavailable Livia Villegas RASCHEL KNITTING MACHINE OPERATOR Unavailable [phone] Encounter Details Date Type Department Care Team (Late Contact Info) Description 12/11/2023 Orders Only [facility] [address] [place] [address] Livia Villegas NP [address] [place] [address] Elevated alkaline phosphatase level (Primary Dx); Hypokalemia; Elevated platelet count Social History Tobacco Use Types Packs/Day Years Used Date Smoking Tobacco: Every Day Cigarettes Smokeless Tobacco: Never PHQ-2 Answer Date Recorded Patient Health Questionnaire-2 Score 0 11/19/2023 Comments Unknown Sex and Gender Information Value Date Recorded Sex Assigned at Not on file Legal Sex Female 11:52 PM EDT Gender Identity Not on file Sexual Orientation Not on file documented as of this encounter Plan of Treatment Upcoming Encounters Date Type Department Care Team ([facility] Contact Info) Description 06/01/2025 2:40 PM EDT Office Visit [facility] [address] [place] [address] Livia Villegas, MADELEINE [address] [place] [address] 05/09/2026 4:30 PM EDT Office Visit [facility] [address] [place] [phone] Livia Villegas NP [address] [place] [address] Scheduled Orders Name Type Priority Associated Diagnoses Orde r Schedule CBC and differential Lab Routine Elevated platelet count Expected: 12/11/2023 (Approximate), Expires: 12/11/2024 Comprehensive metabolic panel Lab Routine Elevated alkaline phosphatase level Hypokalemia Expected: 12/11/2023 (Approximate), Expires: 12/11/2024 documented as of this encounter Visit Diagnoses Diagnosis Elevated alkaline phosphatase level- Primary Hypokalemia Hypopotassemia Elevated platelet count Essential thrombocythemia documented in this encounter Care Teams Servicing Manager Relationship Specialty Start Date End Date Jason Subramanian MD [address] [place] [address] PCP - General Family Medicine 11/19/23 Jason Subramanian MD [address] [place] [address] PCP - Devoted 06/14/24 11/13/24 Livia Villegas NP [address] [place] [address] PCP - Aneta SWEENEY 11/14/24 03/13/25 Livia Villegas NP [address] [place] [address] Referring Physician Nurse Practitioner 05/01/23 documented as of this encounter
--- OUTSIDE RECORDS SUMMARY | 2025-05-17 11:27 | XMS_ITS | Encounter Summary ---
Author Organization [facility] Address [address] [facility] [place] [address] Care Team Providers Care Campus Interviews Intern Name Role Phone Jason Subramanian MD Primary Care Provider [phone] Livia Villegas NP Unavailable [phone] Jason Subramanian MD Primary Care Provider [phone] Jason Subramanian MD Unavailable Livia Villegas NP Unavailable [phone] Reason for Visit * Reason Comments Med Refill Encounter Details Date Type Department Care Team (Late st Contact Info) Description 10/16/2023 Refill [facility] [address] [place] [address] Livia Villegas NP [address] [place] [address] Chronic sinusitis, unspecified; Chronic sinusitis Social History Tobacco Use Types Packs/Day Years Used Date Smoking Tobacco: Every Day Cigarettes Smokeless Tobacco: Never Comments Unknown Sex and Gender Information Value Date Recorded Sex Assigned at Not on file Legal Sex Female 11:52 PM EDT Gender Identity Not on file Sexual Orientation Not on file documented as of this encounter Miscellaneous Notes * Telephone Encounter - Livia Villegas NP - 10/16/2023 2:56 PM EST Needs an appt documented in this encounter Plan of Treatment Upcoming Encounters Date Type Department Care Team (Late st Contact Info) Description 06/01/2025 2:40 PM EDT Office Visit [facility] [address] [place] [address] Livia Villegas NP [address] [place] [address] 05/09/2026 4:30 PM EDT Office Visit [facility] [address] [place] [address] Livia Villegas NP [address] [place] [address] documented as of this encounter Visit Diagnoses Diagnosis Chronic sinusitis, unspecified Chronic sinusitis Unspecified sinusitis (chronic) documented in this encounter Care Teams Campus Interviews Intern Relationship Specialty Start Date End Date Jason Subramanian MD PCP - General Family Medicine 05/01/23 11/18/23 Jason Subramanian MD [address] [place] [address] PCP - General Family Medicine 11/19/23 Jason Subramanian MD [address] [place] [address] PCP - Devoted 06/14/24 11/13/24 Livia Villegas NP [address] [place] [address] PCP - Aneta SWEENEY 11/14/24 03/13/25 Livia Villegas NP [address] [place] [address] Referring Physician Nurse Practitioner 05/01/23 documented as of this encounter
--- OUTSIDE RECORDS SUMMARY | 2025-05-17 11:27 | XMS_ITS | Encounter Summary ---
Author Organization [facility] Address [address] [place] [address] Care Team Providers Care Recreation Attendant Name Role Phone Unallocated, Noms Provider Primary Care Provi yaritza Jason Subramanian MD Primary Care Provider [phone] Livia Villegas NP Unavailable [phone] Jason Subramanian MD Primary Care Provider [phone] Jason Subramanian MD Unavailable Livia Villegas NP Unavailable [phone] Encounter Details Date Type Department Care Team ([facility] Contact Info) Description 03/29/2023 Abstract [facility] [address] [address] [facility] [address] [place] [address] Sung Sanz MD [address] [facility] [address] [place] [address] Social History Tobacco Use Types Packs/Day Years [...] Encounters Date Type Department Care Team ([facility] Contact Info) Description 06/01/2025 2:40 PM EDT Office Visit [facility] [address] [place] [address] Livia Villegas NP [address] [place] [address] 05/09/2026 4:30 PM EDT Office Visit [facility] [address] [place] [address] Livia Villegas, QUALITY REVIEW SPECIALIST [address] [place] [address] documented as of this encounter Visit Diagnoses Not on filedocumented in this encounter Care Teams Recreation Attendant Relationship Specialty Start Date End Date Unallocated, [facility] MD [facility] [address] [place], [place] [phone] PCP - General 03/27/23 04/30/23 Jason Subramanian MD [address] [place] [address] PCP - General Family Medicine 05/01/23 11/18/23 Jason Subramanian MD [address] [place] [address] PCP - General Family Medicine 11/19/23 Jason Subramanian MD [address] [place] [address] PCP - Devoted 06/14/24 11/13/24 Livia Villegas NP [address] [place] [address] PCP - Aneta SWEENEY 11/14/24 03/13/25 Livia Villegas NP [address] [place] [address] Referring Physician Nurse Practitioner 05/01/23 documented as of this encounter
--- OUTSIDE RECORDS SUMMARY | 2025-05-17 11:27 | XMS_ITS | Clinical Summary ---
Author Organization [facility] Address [address] [facility] [place] [address] Care Team Providers Care Computer Technology Trainer Name Role Phone Livia Villegas NP Unavailable [phone] Jason Subramanian MD Primary Care Provider [phone] Allergies Active Allergy Reactions Criticality Noted Date Comments Famotidine Cough 03/27/2023 Medications albuterol HFA 90 mcg/act inhalerIndicatio ns:Environmental allergies Inhale 2 puffs every 6 (six) hours if needed for wheezing 18 g 1 5 06/02/20 25 Active cholecalciferol (Vitamin D-3) 50 MCG (1999) capsuleIndicatio ns:Chronic kidney disease, stage 3a (CMS-HCC) Take 1 capsule (50 mcg) by mouth Daily 90 capsule 5 08/01/20 25 Active fluticasone (Flonase) 50 MCG/ACT nasal sprayIndications :Environmental allergies SPRAY 2 SPRAYS INTO EACH NOSTRIL EVERY DAY 48 mL 1 5 Active metoprolol succinate XL (Toprol-XL) 50 MG 24 hr tabletIndication s:Primary hypertension Take 1 tablet (50 mg) by mouth Daily Do not crush or chew 90 tablet 1 5 08/01/20 25 Active montelukast (Singulair) 10 MG tabletIndication s:Environmental allergies Take 1 tablet (10 mg) by mouth at bedtime 90 tablet 1 5 08/01/20 25 Active NIFEdipine CC (Adalat CC) 90 MG 24 hr tabletIndication s:Primary hypertension Take 1 tablet (90 mg) by mouth in the morning. Take before meals. Do not crush, chew, or split.Take 90 mg by mouth in the morning. Take before meals. Do not crush, chew, or split.. 90 tablet 1 08/01/20 25 Active omeprazole (PriLOSEC) [address] capsuleIndicatio ns:Gastroesophag eal reflux disease, unspecified whether esophagitis present Take 1 capsule (20 mg) by mouth in the morning. Take before meals. Do not crush or chew. 90 capsule 1 5 08/01/20 25 Active FLUoxetine (PROzac) 20 MG capsuleIndicatio ns:Current mild episode of major depressive disorder without prior episode,Anxiety Take 1 capsule (20 mg) by mouth Daily 30 capsule 5 06/02/20 25 Active traZODone (Desyrel) 50 MG tabletIndication s:Adjustment insomnia Take 1 tablet (50 mg) by mouth at bedtime 30 tablet 5 06/02/20 25 Active cholecalciferol (Vitamin D-3) 50 MCG (2000 UT) capsule Take 2,000 Units by mouth in the morning. 05/03/20 25 Discontinu ed(Reorder ) metoprolol succinate XL (Toprol-XL) 50 MG 24 hr tabletIndication s:Primary hypertension Take 1 tablet (50 mg) by mouth Daily Do not crush or chew 90 tablet 1 05/03/20 25 Discontinu ed(Reorder ) NIFEdipine CC (Adalat CC) 90 MG 24 hr tabletIndication s:Primary hypertension Take 1 tablet (90 mg) by mouth in the morning. Take before meals. Do not crush, chew, or split.Take 90 mg by mouth in the morning. Take before meals. Do not crush, chew, or split... 90 tablet 1 05/03/20 25 Discontinu ed(Reorder ) FLUoxetine (PROzac) 10 MG capsuleIndicatio ns:Current mild episode of major depressive disorder without prior episode,Anxiety Take 1 capsule (10 mg) by mouth Daily 30 capsule 1 4 05/03/20 25 Discontinu ed(Reorder ) montelukast (Singulair) 10 MG tabletIndication s:Environmental allergies Take 1 tablet (10 mg) by mouth at bedtime 90 tablet 1 4 05/03/20 25 Discontinu ed(Reorder ) albuterol HFA 90 mcg/act inhalerIndicatio ns:Environmental allergies Inhale 2 puffs every 6 (six) hours if needed for wheezing 18 g 1 4 05/03/20 25 Discontinu ed(Reorder ) fluticasone (Flonase) 50 MCG/ACT nasal sprayIndications :Environmental allergies SPRAY 2 SPRAYS INTO EACH NOSTRIL EVERY DAY 48 mL 1 5 05/03/20 25 Discontinu ed(Reorder ) omeprazole (PriLOSEC) [address] capsuleIndicatio ns:Gastroesophag eal reflux disease, unspecified whether esophagitis present Take 1 capsule (20 mg) by mouth in the morning. Take before meals. Do not crush or chew.. 90 capsule 1 5 05/03/20 25 Discontinu ed(Reorder ) Active Problems Problem Noted Date Diagnosed Date Adjustment insomnia 05/03/2025 Lung cancer screening declined by patient 2024 Assessment & Plan (05/03/2025 5:30 PM EDT): Declined Encounter for subsequent guardian hospital wellness visit (AWV) in Medicare patient 05/03/2025 Assessment & Plan (05/03/2025 5:35 PM EDT): Reviewed Ht/Wt/BMI Recommend eye exam yearly Recommend dental exams twice a year Balance work/leisure activities Exercises is recommended most days of the week (appropriate as chronic conditions allow) Follow up yearly and prn Anxiety 05/03/2025 Cigarette nicotine dependence without complicati on 04/08/2025 Assessment & Plan (05/03/2025 5:30 PM EDT): The patient has been advised of the risks of continued smoking: stroke, CA, all forms of cancer, lung disease, and . Options for quitting smoking include: cold turkey, hypnosis, acupuncture, nicotine replacement meds (gum, lozenges, and patches), Buproprion, and Varenicline. At this time pt is encouraged to evaluate their goals for wanting to quit smoking, and reach out to provider when ready to start this process Has used patch in the past Started smokinyo-present 50 years 2ppd, Does not want to do lung cancer screening JAD (generalized anxiety disorder) 09/02/2024 Assessment & Plan (05/03/2025 7:35 AM EDT): Current med: fluoxetine Current mild episode of robert r depressive disorder without prior episode 09/02/2024 Assessment & Plan (05/03/2025 7:36 AM EDT): floxetine Assessment & Plan (09/02/2024 1:35 PM EST): Start fluoxetine at 10mg daily. Take medication only as directed. This medication will take approximately 4-6 weeks to become effective. If any suicidal thoughts, thoughts of hurting others, or hallucinations contact the office or proceed to the Emergency Room for mental health evaluation. Medication may cause dry mouth, dizziness, and in some cases worsening in depression symptoms. Please contact the office if these occur. Chronic kidney disease, stage 3a 06/18/2024 Assessment & Plan (05/03/2025 7:35 AM EDT): Recommend good blood pressure control Avoid nephrotoxic meds if possible Check labs yearly and prn changes to meds or changes in sxs Assessment & Plan (09/02/2024 1:34 PM EST): Periodic lab checks Primary osteoarthritis involving multiple joints 06/18/2024 Assessment & Plan (06/18/2024 2:45 PM EDT): Recommend if needs further meds for arthritis take only tylenol Fu in 8 weeks Encounter for well woman exa m with routine gynecological exam 03/18/2024 Assessment & Plan (03/18/2024 3:31 PM EDT): Reviewed Ht/Wt/BMI Recommend eye exam yearly Recommend dental exams twice a year Balance leisure activities Exercises is recommended most days of the week (appropriate as chronic conditions allow) Fu as per PAP indications Recommend addition of OTC calcium supplement Follow up yearly and prn Neoplasm of uncertain behavior of skin Assessment & Plan (03/18/2024 3:32 PM EDT): Refer to derm Encounter for screening mamm ogram for malignant neoplasm of breast 01/29/2024 Colon cancer screening 01/29/2024 Assessment & Plan (09/02/2024 7:33 AM EST): Has been referred for colonoscopy and seen by general surgeon, to date colonoscopy is not completed Assessment & Plan (03/18/2024 3:31 PM EDT): Refer to general surgery [facility] [place] normal as far as she knows , believes over 10 years ago Elevated alkaline phosphatase level 12/11/2023 Hypokalemia 12/11/2023 Elevated platelet count 12/11/2023 Trigger middle finger of right hand 11/19/2023 Assessment & Plan (11/19/2023 3:08 PM EST): Refer to Ortho for evaluation Cervical spinal stenosis 11/11/2023 Hypertension 11/11/2023 Assessment & Plan (05/03/2025 7:34 AM EDT): Please check blood pressure daily and record DASH diet Limit caffeine Take medication as directed Contact office if chest pain, pressure, dizziness, shortness of breath, swelling legs Recommend slow position changes Meds: metoprolol, Nifedipine Assessment & Plan (09/02/2024 1:34 PM EST): Please check blood pressure daily and record DASH diet Limit caffeine Take medication as directed Contact office if chest pain, pressure, dizziness, shortness of breath, swelling legs Recommend slow position changes No dose changes in meds Assessment & Plan (06/18/2024 2:42 PM EDT): Under control No med dose changes Assessment & Plan (01/29/2024 1:34 PM EDT): Has been out of b isai, it looks like maybe 6 weeks Refilled both meds Fu 4 weeks for recheck Assessment & Plan (11/19/2023 3:03 PM EST): Check labs Refill meds Chronic cough 11/11/2023 Gastroesophageal reflux disease 11/11/2023 Assessment & Plan (05/03/2025 7:35 AM EDT): Recommendations: freq small meals, nothing to eat or drink at least 2 hours prior to bed, limit caffeine, alcohol, as well as spicy foods Meds to limit or avoid if possible: NSAIDS Elevate HOB if possible Continue PPI Assessment & Plan (09/02/2024 1:34 PM EST): Recommendations: freq small meals, nothing to eat or drink at least 2 hours prior to bed, limit caffeine, alcohol, as well as spicy foods Meds to limit or avoid if possible: NSAIDS Elevate HOB if possible Continue PPI Assessment & Plan (01/29/2024 1:34 PM EDT): Restart PPI Assessment & Plan (11/19/2023 3:03 PM EST): Stable on current meds no changes Quit smoking Check labs DDD (degenerative disc disease), cervical 2023 Environmental allergies 11/11/2023 Assessment & Plan (11/19/2023 3:03 PM EST): No changes in meds Mixed hyperlipidemia 11/11/2023 Assessment & Plan (05/03/2025 7:35 AM EDT): No current meds Check labs yearly Assessment & Plan (11/19/2023 3:03 PM EST): Check labs Resolved Problems Problem Noted Date Diagnosed Date Resolved Date Tobacco user 11/19/2023 04/08/2025 Assessment & Plan (09/02/2024 7:30 AM EST): The patient has been advised of the risks of continued smoking: stroke, CA, all forms of cancer, lung disease, and . Options for quitting smoking include: cold turkey, hypnosis, acupuncture, nicotine replacement meds (gum, lozenges, and patches), Buproprion, and Varenicline. At this time pt is encouraged to evaluate their goals for wanting to quit smoking, and reach out to provider when ready to start this process Assessment & Plan (01/29/2024 1:32 PM EDT): Cannot afford smoking cessation meds and insurance not covering Assessment & Plan (11/19/2023 3:04 PM EST): Would like to quit smoking Would like to restart patches, has used in the past Anxiety 11/11/2023 09/30/2024 Assessment & Plan (09/02/2024 1:36 PM EST): Start fluoxetine at 10mg daily Take medication only as directed. This medication will take approximately 4-6 weeks to become effective. If any suicidal thoughts, thoughts of hurting others, or hallucinations contact the office or proceed to the Emergency Room for mental health evaluation. Medication may cause dry mouth, dizziness, and in some cases worsening in depression symptoms. Please contact the office if these occur. Assessment & Plan (06/18/2024 2:43 PM EDT): Feeling anxious today, ran a red light on the way here just feels anxious since doing that Encounters Date Type Department Care Team Description 05/03/2025 5:00 PM EDT Office Visit [facility] [address] [place] [address] Livia Villegas NP Encounter for subsequent annual wellness visit (AWV) in Medicare patient (Primary Dx); Primary hypertension ; Gastroesophageal reflux disease, unspecified whether esophagitis present; Chronic kidney disease, stage 3a ([facility]-HCC); Mixed hyperlipidemia ; JAD (generalized anxiety disorder) ; Encounter for screening mammogram for malignant neoplasm of breast; Cigarette nicotine dependence without complication; Current mild episode of major depressive disorder without prior episode ; Environmental allergies; Anxiety; Adjustment insomnia; Lung cancer screening declined by patient from Last 3 Months Social History Tobacco Use Types Packs/Day Years Used Date Smoking Tobacco: Every Day Cigarettes Smokeless Tobacco: Never Tobacco Cessation:Ready to Q uit: Not Asked; Counseling Given: Not Answered Alcohol Use Standard Drinks/Week Comments Not Currently 0 (1 standard drink = 0.6 oz pur e alcohol) PHQ-2 Answer Date Recorded Patient Health Questionnaire-2 Score 2 05/03/2025 Comments Unknown Sex and Gender Information Value Date Recorded Sex Assigned at Not on file Legal Sex Female 11:52 PM EDT Gender Identity Not on file Sexual Orientation Not on file Last Filed Vital Signs Vital Sign Reading Time Taken Comments Blood Pressure 138/68 05/03/2025 4:53 PM EDT Pulse 80 05/03/2025 4:53 PM EDT Temperature 36.9 C (98.5 F) 05/03/2025 4:53 PM EDT Respiratory Rate 18 05/03/2025 4:53 PM EDT Oxygen Saturation 98% 05/03/2025 4:53 PM EDT Inhaled Oxygen Concentration - - Weight 57.6 kg (127 lb) 05/03/2025 4:53 PM EDT Height 149.9 cm (4' 11 ) 09/02/2024 1:03 PM EST Body Mass Index 25.65 09/02/2024 1:03 PM EST Plan of Treatment Upcoming Encounters Date Type Department Care Team (Late st Contact Info) Description 06/01/2025 2:40 PM EDT Office Visit [facility] [address] [place] [phone] Livia Villegas NP [address] [place] [address] 05/09/2026 4:30 PM EDT Office Visit [facility] [address] [place] [address] Livia Villegas NP [address] [place] [address] Health Maintenance Due Date Last Done Comments CT Colonography 1960 Colonoscopy 1960 FIT-DNA 1960 FIT 1960 FOBT 1960 Sigmoidoscopy 1960 Pap Smear 1981 Colorectal Cancer Screening 09/30/2025 Postponed from 1960 (Patient Refused) Mammogram 09/30/2025 09/30/2024 (Mary Grace ent Refused), 03/13/2023 Medicare Annual Wellness (AWV) 05/03/2026 05/03/2025, 03/18/2024 Cervical Cancer Screening 03/18/2029 HPV/Cotest 03/18/2029 03/18/2024 Influenza Vaccine Discontinued Insurance [place]ICAID [place] MEDICARE [place] MEDICARE ADVANTAGE Care Teams Computer Technology Trainer Relationship Specialty Start Date End Date Jason Subramanian MD [address] [place] [address] PCP - General Family Medicine 11/19/23 Livia Villegas NP [address] [place] [address] Referring Physician Nurse Practitioner 05/01/23
--- OUTSIDE RECORDS SUMMARY | 2025-05-17 11:27 | XMS_ITS | Encounter Summary ---
Author Organization [facility] Address [address] [facility] [place] [address] Care Team Providers Care Vp Public Relations Name Role Phone Livia Villegas NP Unavailable [phone] Jason Subramanian MD Primary Care Provider Jason Subramanian MD Unavailable Livia Villegas SPECIALTY MOLDER Unavailable [phone] Reason for Visit * Reason Comments Med Refill Encounter Details Date Type Department Care Team (Late st Contact Info) Description 11/19/2023 Refill [facility] [address] [place] [address] Livia Villegas NP [address] [place] [address] Primary hypertension Social History Tobacco Use Types Packs/Day Years Used Date Smoking Tobacco: Every Day Cigarettes Smokeless Tobacco: Never PHQ-2 Answer Date Recorded Patient Health Questionnaire-2 Score 0 11/19/2023 Comments Unknown Sex and Gender Information Value Date Recorded Sex Assigned at Not on file Legal Sex Female 11:52 PM EDT Gender Identity Not on file Sexual Orientation Not on file documented as of this encounter Functional Status * Over the past 2 weeks, how often have you been bothered by any of the following problems? Question Answer Date of Assessment Author Little interest or pleasure in doing things Not at all 11/19/2023 2:33 PM PAOLA DE LEON Feeling down, depressed, or hopeless Not at all 11/19/2023 2:33 PM PAOLA DE LEON Patient Health Questionnaire -2 Score 0 11/19/2023 2:33 PM EST ANDREYDOMINICK PAOLA Tash documented as of this encounter Miscellaneous Notes * Telephone Encounter - Livia Villegas NP - 11/19/2023 4:57 PM EST Already done documented in this encounter Plan of Treatment Upcoming Encounters Date Type Department Care Team (Late st Contact Info) Description 06/01/2025 2:40 PM EDT Office Visit [facility] [address] [place] [address] Livia Villegas NP [address] [place] [address] 05/09/2026 4:30 PM EDT Office Visit [facility] [address] [place] [address] Livia Villegas NP [address] [place] [address] documented as of this encounter Visit Diagnoses Diagnosis Primary hypertension Unspecified essential hypertension documented in this encounter Care Teams Vp Public Relations Relationship Specialty Start Date End Date Jason Subramanian MD [address] [place] [address] PCP - General Family Medicine 11/19/23 Jason Subramanian MD [address] [place] [address] PCP - Devoted 06/14/24 11/13/24 Livia Villegas NP [address] [place] [address] PCP - Aneta SWEENEY 11/14/24 03/13/25 Livia Villegas NP [address] [place] [address] Referring Physician Nurse Practitioner 05/01/23 documented as of this encounter
[2025-05-17 11:45] LABS: Glucose Urine UA NEGATIVE (NEGATIVE)
[2025-05-17 12:14] LABS: Hematocrit 44.0 % (36.0-48.0); Hemoglobin 14.4 g/dL (12.0-16.0); Immature Granulocytes Abs Auto 0.06 10^3/uL (0.00-0.03); Immature Granulocytes Pct Auto 0.4 % (0.0-0.5); Lymphocytes Absolute Auto 3.4 10^3/uL (1.2-3.8); Mean Corpuscular HGB Conc 32.7 g/dL (29.9-35.2); Mean Corpuscular Hemoglobin 26.9 pg (26.7-34.0); Mean Corpuscular Volume 82.1 fL (81.0-99.0); Platelet Count 482 10^3/uL (150-450); Red Blood Count 5.36 10^6/uL (4.20-5.40); White Blood Count 13.6 10^3/uL (4.0-11.0)
[2025-05-17 12:29] LABS: Alanine Aminotransferase 20 U/L (14-59); Albumin Globulin Ratio 0.9; Albumin Level 4.0 g/dL (3.4-5.0); Alkaline Phosphatase 114 U/L (46-116); Anion Gap 16.9; Aspartate Amino Transferase 14 U/L (15-37); Blood Urea Nitrogen 15.0 mg/dL (7.0-18.0); Calcium 9.6 mg/dL (8.5-10.1); Carbon Dioxide 21.3 mmol/L (21.0-32.0); Chloride 106 mmol/L (98-107); Cholesterol 217 mg/dL (<=200); Estimated GFR (African America >60 (>=60 mL/min/1.73m^2); Estimated GFR (Non-African Ame 51 (>=60 mL/min/1.73m^2); Globulin 4.7 g/dL; Glucose 98 mg/dL (74-106); HDL Cholesterol 60 mg/dL (40-60); Potassium 3.2 mmol/L (3.5-5.1); Sodium 141 mmol/L (136-145); Thyroid Stimulating Hormone 0.472 uIU/mL (0.358-3.740); Total Protein 8.7 g/dL (6.4-8.2); Triglycerides 80 mg/dL (<=150); VLDL CHOLESTEROL 16.0 mg/dL
[2025-05-17 12:45] LABS: Microalbum Creatinine Ratio Ur 21.6 mg/g (0.0-29.9)
== END 2025-05-17 11:19 | disposition home or self-care (01) ==
LOC: LAB 11:24
PROVIDERS: PCP Nurse Practitioner; Visit Provider Nurse Practitioner
DX: E78.2 Mixed hyperlipidemia (principal); K21.9 Gastro-esophageal reflux disease without esophagitis; N18.31 Chronic kidney disease, stage 3a; F17.210 Nicotine dependence, cigarettes, uncomplicated; F41.1 Generalized anxiety disorder; I12.9 Hypertensive chronic kidney disease with stage 1 through stage 4 chronic kidney disease, or unspecified chronic kidney disease
CPT/HCPCS: 36415; 80053; 80061; 81003; 82043; 82306; 82570; 84443; 85025

== ENCOUNTER 2025-05-20 13:06 | Outpatient (OUT) | payer MEDICARE, MEDICAID, SELFPAY ==
--- NOTE | 2025-05-20 13:08 | MM_ITS ---
Patient Name: LEXII URBANO MR#: [id number] : 1960 Exam Date: 05/20/2025 Ordering Doctor: XIOMARA MAR CNP RADIOLOGY REPORT PROCEDURE: MM TOMOSYNTHESIS SCREENING BI COMPARISON: MG MAMM SCREEN 3D SHAWN CAD, 02/12/2023. INDICATIONS: Screening Calculator Name NCI Breast Cancer Risk Assessment Tool 5 Year Breast Cancer Risk Not Reported. Lifetime Breast Cancer Risk Not Reported. Personal Breast Cancer No Personal Ovarian Cancer No Treatments None Family Cancers None LOCATION: [facility] BREAST COMPOSITION: There are scattered areas of fibroglandular density. FINDINGS: RIGHT BREAST: No significant suspicious finding. LEFT BREAST: No significant suspicious finding. DIAGNOSTIC CATEGORY 1--NEGATIVE. RECOMMENDATIONS: ROUTINE MAMMOGRAM AND CLINICAL EVALUATION IN 12 MONTHS. PLEASE NOTE: A NORMAL MAMMOGRAM DOES NOT EXCLUDE THE POSSIBILITY OF BREAST CANCER. A CLINICALLY SUSPICIOUS PALPABLE LUMP SHOULD BE BIOPSIED. Dictated by: Dwight Valdovinos MD on 05/20/2025 at 15:07 Approved by: Dwight Valdovinos MD on 05/20/2025 at 15:12
--- OUTSIDE RECORDS SUMMARY | 2025-05-20 13:08 | XMS_ITS | Encounter Summary ---
Author Organization [facility] Address [address] [facility] [place] [address] Care Team Providers Care Dynamite Shooter Name Role Phone Jason Subramanian MD Primary Care Provider [phone] Livia Villegas NP Unavailable [phone] Jason Subramanian MD Primary Care Provider [phone] Jason Subramanian MD Unavailable Livia Villegas NP Unavailable [phone] Livia Villegas NP Unavailable [phone] Reason for Visit * Reason Comments Med Refill Encounter Details Date Type Department Care Team (Late st Contact Info) Description 10/16/2023 Refill [facility] [address] [place] [address] Livia Villegas NP [address] [place] [address] Chronic sinusitis, unspecified; Chronic sinusitis Social History [...] [facility] [address] [place] [address] Livia Villegas, MADELEINE [address] [place] [address] 05/09/2026 4:30 PM EDT Office Visit [facility] [address] [place] [address] Livia Villegas, MADELEINE [address] [place] [address] documented as of this encounter Visit Diagnoses Diagnosis Chronic sinusitis, unspecified Chronic sinusitis Unspecified sinusitis (chronic) documented in this encounter Care Teams Dynamite Shooter Relationship Specialty Start Date End Date Jason Subramanian MD PCP - General Family Medicine 05/01/23 11/18/23 Jason Subramanian MD [address] [place] [address] PCP - General Family Medicine 11/19/23 Jason Subramanian MD [address] [place] [address] PCP - Devoted 06/14/24 11/13/24 Livia Villegas NP [address] [place] [address] PCP - Aneta SWEENEY 11/14/24 03/13/25 Livia Villegas NP [address] [place] [address] PCP - Aneta SWEENEY 04/13/25 Livia Villegas NP [address] [place] [address] Referring Physician Nurse Practitioner 05/01/23 documented as of this encounter
--- OUTSIDE RECORDS SUMMARY | 2025-05-20 13:08 | XMS_ITS | Clinical Summary ---
Author Organization [facility] Address [address] [place] [address] Care Team Providers Care Radiology Clerk Name Role Phone Livia Villegas NP Unavailable [phone] Jason Subramanian MD Primary Care Provider [phone] Livia Villegas CHIEF ORDER DISPATCHER Unavailable [phone] Allergies Active Allergy Reactions Criticality Noted Date Comments Famotidine Cough 03/27/2023 Medications albuterol HFA 90 mcg/act inhalerIndicatio ns:Environmental allergies Inhale 2 puffs every 6 (six) hours if needed for wheezing 18 g 1 5 06/02/20 25 Active cholecalciferol (Vitamin D-3) 50 MCG (1999) capsuleIndicatio ns:Chronic kidney disease, stage 3a ([facility]) Take 1 capsule (50 mcg) by mouth [...] crush, chew, or split.. 90 tablet 1 5 08/01/20 25 Active omeprazole (PriLOSEC) 20 MG [...] mg) by mouth Daily 30 capsule 1 05/03/20 25 Discontinu ed(Reorder ) montelukast (Singulair) [...] Active Problems Problem Noted Date Diagnosed Date Elevated WBC count 05/20/2025 Elevated serum protein level 05/20/2025 Adjustment insomnia 05/03/2025 Lung cancer screening declined by patient 2024 Assessment & Plan (05/03/2025 5:30 PM EDT): Declined Encounter for subsequent [facility] wellness visit (AWV) in Medicare patient 05/03/2025 [...] of the risks of continued smoking: stroke, [place], all forms of cancer, lung disease, and [...] in 8 weeks Encounter for well woman exloyd m with routine gynecological exam 03/18/2024 Assessment [...] 3:31 PM EDT): Refer to general [facility] [place] normal as far as she [...] of the risks of continued smoking: stroke, [place], all forms of cancer, lung disease, and [...] Encounters Date Type Department Care Team Description 05/20/2025 Orders Only [facility] [address] [place] [address] Livia Villegas, MADELEINE Elevated serum protein level (Primary Dx); Leukocytosis, unspecified type; Elevated platelet count 05/20/2025 Orders Only [facility] [address] [place] [address] Livia Villegas NP Leukocytosis, unspecified type (Primary Dx); Elevated serum protein level 05/20/2025 Orders Only [facility] [address] [place] [address] Livia Villegas NP 05/17/2025 Clinisync Result Encounter NOMS External Department Unsolicited Livia Villegas NP 05/03/2025 5:00 PM EDT Office Visit [facility] [address] [place] [address] Livia Villegas NP Encounter for subsequent annual wellness visit (AWV) in Medicare patient (Primary Dx); Primary hypertension ; Gastroesophageal reflux disease, unspecified whether esophagitis present; Chronic kidney disease, stage 3a ([facility]); Mixed hyperlipidemia ; JAD (generalized anxiety disorder) [...] [facility] [address] [place] [address] Livia Villegas, CHIEF ORDER DISPATCHER [address] [place] [phone] 05/09/2026 4:30 PM EDT Office Visit [facility] [address] [place] [address] Livia Villegas, CHIEF ORDER DISPATCHER [address] [place] [address] Health Maintenance Due Date Last Done Comments CT Colonography 1960 Colonoscopy 1960 FIT-DNA 1960 FIT 1960 FOBT 1960 Sigmoidoscopy 1960 Pap Smear 1981 Colorectal Cancer Screening 09/30/2025 Postponed from 1960 (Patient Refused) Mammogram 09/30/2025 09/30/2024 (Mary Grace ent Refused), 03/13/2023 Medicare Annual Wellness (AWV) 05/03/2026 05/03/2025, 03/18/2024 Cervical Cancer Screening 03/18/2029 HPV/Cotest 03/18/2029 03/18/2024 Influenza Vaccine Discontinued Procedures Procedure Name Priority Date/Time Associated Diagnosis Comments TBH VITAMIN D 25 [place] Routine 05/17/2025 1 1:50 AM EDT ALL THYROID STIM HORMONE Routine 05/17/2025 11:47 AM EDT ALL LIPID PROFILE (FASTING) Routine 05/17/2025 11:47 AM EDT [facility] CMP (CMP) (FOR REMOTE REPLACED BY [facility] USE) Routine 05/17/2025 11:47 AM EDT ALL CBC WITH AUTO DIFF Routine 05/17/2025 11:47 AM EDT TBH MICROALB CREAT RATIO RANDOM Routine 05/17/2025 11:29 AM EDT TBH UA (CLEAN/CATCH) MICROSCOPIC IF INDICATE Routine 05/17/2025 11:29 AM EDT from Last 3 Months Results * TB VITAMIN D 25 [place] (05/17/2025 11:50 AM EDT) VITAMIN D 66.9 ng/mL TB Comment: <20 ng/mL Vit D deficient 20-<30 ng/mL Vit D insufficient 30-100 ng/mL Vit D sufficient >100 ng/mL Potential Toxicity 05/17/2025 11:5 0 AM EDT 05/17/2025 11:55 AM EDT Narrative CLINISYNC - 05/17/2025 1:04 PM EDT us Livia Villegas CHIEF ORDER DISPATCHER CLINISYNC Final Result [facility] * (ABNORMAL) [facility] CMP (CMP) (FOR REMOTE REPLACED BY [facility] USE) (05/17/2025 11:47 AM EDT) SODIUM 141 136 - 145 mmol/L TBH POTASSIUM 3.2(L) 3.5 - 5.1 mmol/L TBH CHLORIDE 106 98 - 107 mmol/L TBH CARBON DIOXIDE 21.3 21.0 - 32.0 mmol/L TBH ANION GAP 16.9 TBH GLUCOSE 98 74 - 106 mg/dL TBH BLOOD UREA NITROGEN 15.0 7.0 - 18.0 mg/dL TBH CREATININE 1.09(H) 0.55 - 1.02 mg/dL TBH TBH EGFR-AF [place] >60 >=60 mL/min/1. 73m 2 TBH TBH EGFR-NON AF [place] 51(L) >=60 mL/min/1. 73m 2 TBH BUN CREATININE RATIO 13.8 TBH CALCIUM 9.6 8.5 - 10.1 mg/dL TBH BILIRUBIN TOTAL 0.3 0.2 - 1.0 mg/dL TBH ASPARTATE AMINO TRANSFERASE 14(L) 15 - 37 U/L TBH ALANINE AMINOTRANSFERASE 20 14 - 59 U/L TBH ALKALINE PHOSPHATASE 114 46 - 116 U/L TB TOTAL PROTEIN 8.7(H) 6.4 - 8.2 g/dL TBH ALBUMIN LEVEL 4.0 3.4 - 5.0 g/dL TBH GLOBULIN 4.7 g/dL TBH ALBUMIN GLOBULIN RATIO 0.9 TBH 05/17/2025 11:4 7 AM EDT 05/17/2025 11:55 AM EDT Narrative CLINISYNC - 05/17/2025 12:31 PM EDT Livia Villegas NP CLINISYCT Final Result Performing Organization Address City/[facility]/ZIP Co de Phone Number [facility] * ALL THYROID STIM HORMONE (05/17/2025 11:47 AM EDT) THYROID STIMULATING HORMONE 0.472 0.358 - 3.740 uIU/mL TB 05/17/2025 11:4 7 AM EDT 05/17/2025 11:55 AM EDT Narrative CLINISYNC - 05/17/2025 12:31 PM EDT Livia Villegas NP CLINISYCT Final Result Performing Organization Address City/[facility]/ZIP Co de Phone Number [facility] * (ABNORMAL) ALL LIPID PROFILE (FASTING) (05/17/2025 11:47 AM EDT) TRIGLYCERIDES 80 <=150 mg/dL TB CHOLESTEROL 217(H) <=200 mg/dL TB HDL CHOLESTEROL 60 40 - 60 mg/dL TB Comment: > or =60 mg/dl - LOW CARDIOVASCULAR RISK <40 mg/dl - HIGH CARDIOVASCULAR RISK LDL CHOLESTEROL CALCULATED 141.0 mg/dL TB Comment: <100 mg/dl OPTIMAL 100-129 mg/dl NEAR OR ABOVE OPTIMAL 130-159 mg/dl BORDERLINE HIGH 160-189 mg/dl HIGH >190 mg/dl VERY HIGH VLDL CHOLESTEROL 16.0 mg/dL TB CHOL HDL RATIO 3.6 TBH Comment: 3.3 - 4.4 LOW RISK 4.4 - 7.1 AVERAGE RISK 7.1 - 11.0 MODERATE RISK >11.0 HIGH RISK 05/17/2025 11:4 7 AM EDT 05/17/2025 11:55 AM EDT Narrative [facility]ETTE - 05/17/2025 12:31 PM EDT us Livia Villegas NP CLINISYNC Final Result [facility]IN[facility]NC TB * (ABNORMAL) ALL CBC WITH AUTO DIFF (05/17/2025 11:47 AM EDT) TB WBC 13.6(H) 4.0 - 11.0 10 3/uL TBH TBH RBC 5.36 4.20 - 5.40 10 6/uL TBH TBH HGB 14.4 12.0 - 16.0 g/dL TBH TBH HCT 44.0 36.0 - 48.0 % TBH TBH MCV 82.1 81.0 - 99.0 fL TBH TBH MCH 26.9 26.7 - 34.0 pg TBH TBH MCHC 32.7 29.9 - 35.2 g/dL TBH TBH RDW 15.1(H) 11.0 - 15.0 % TBH TBH PLT 482(H) 150 - 450 10 3/uL TBH TBH MPV 11.0 9.5 - 13.5 fL TBH NEUTROPHILS PERCENT AUTO 66.5 43.0 - 75.0 % TBH LYMPHOCYTES PERCENT AUTO 24.9 20.5 - 60.0 % TBH MONOCYTES PERCENT AUTO 4.8 1.7 - 12.0 % TBH TBH EO % 2.6 0.9 - 7.0 % TBH BASOPHILS PERCENT AUTO 0.8 0.2 - 2.0 % TBH IMMATURE GRANULOCYTES PCT AUTO 0.4 0.0 - 0.5 % TBH NEUTROPHILS ABSOLUTE AUTO 9.0(H) 1.4 - 6.5 10 3/uL TBH LYMPHOCYTES ABSOLUTE AUTO 3.4 1.2 - 3.8 10 3/uL TBH MONOCYTES ABSOLUTE AUTO 0.7 0.3 - 0.8 10 3/uL TBH TBH EO # 0.4 0.0 - 0.7 10 3/uL TBH BASOPHILS ABSOLUTE AUTO 0.1 0.0 - 0.1 10 3/uL TBH IMMATURE GRANULOCYTES ABS AUTO 0.06(H) 0.00 - 0.03 10 3/uL TBH 05/17/2025 11:4 7 AM EDT 05/17/2025 11:55 AM EDT Narrative CLINISYNC - 05/17/2025 12:16 PM EDT us Livia Villegas CHIEF ORDER DISPATCHER CLINISYNC Final Result CLINIS[facility]NC TB * TBH UA (CLEAN/CATCH) MICROSCOPIC IF INDICATE (05/17/2025 11:29 AM EDT) COLOR URINE YELLOW YELLOW TBH CLARITY URINE CLEAR CLEAR TBH SPECIFIC GRAVITY URINE 1.020 1.005 - 1.025 TBH PH URINE 6.0 5.0 - 9.0 TBH PROTEIN URINE TRACE NEG/TRACE mg/dL TBH GLUCOSE URINE UA NEGATIVE NEGATIVE mg/dL TBH BILIRUBIN URINE NEGATIVE NEGATIVE TBH KETONES URINE NEGATIVE NEGATIVE mg/dL TBH BLOOD URINE NEGATIVE NEGATIVE TBH NITRITE URINE NEGATIVE NEGATIVE TBH UROBILINOGEN URINE 1.0 0.2 - 1.0 EU/dL TBH LEUKOCYTE ESTERASE URINE NEGATIVE NEGATIVE TBH URINE MICROSCOPIC INDICATED NO TBH 05/17/2025 11:2 9 AM EDT 05/17/2025 11:35 AM EDT Narrative CLINISYNC - 05/17/2025 11:47 AM EDT us Livia Villegas NP CLINISYNC Final Result [facility]IN[facility]NC TB * TBH MICROALB CREAT RATIO RANDOM (05/17/2025 11:29 AM EDT) MICROALBUMIN URINE RANDOM 4.5 <=30.0 mg/dL TBH CREATININE URINE RANDOM 207.69 20.00 - 300.00 mg/dL TBH MICROALBUM CREATININE RATIO UR 21.6 0.0 - 29.9 mg/g TBH Comment: NO MICROALBUMINURIA 0-29 MG/G CLINICAL MICROALBUMINURIA 30-300 MG/G MACROALBUMINURIA >300 MG/G 05/17/2025 11:2 9 AM EDT 05/17/2025 11:35 AM EDT Narrative CLINISYNC - 05/17/2025 12:46 PM EDT us Livia Villegas NP CLINISYNC Final Result [facility] from Last 3 Months Insurance [place]ICAID [place] MEDICARE ANTHEM MEDICARE ADVANTAGE Care Teams Radiology Clerk Relationship Specialty Start Date End Date Jason Subramanian MD [address] [place] [address] PCP - General Family Medicine 11/19/23 Livia Villegas NP [address] [place] [address] PCP - Aneta SWEENEY 04/13/25 Livia Villegas NP [address] [place] [address] Referring Physician Nurse Practitioner 05/01/23
--- OUTSIDE RECORDS SUMMARY | 2025-05-20 13:08 | XMS_ITS | Encounter Summary ---
Author Organization [facility] Address [address] [facility] [place] [address] Care Team Providers Care Site Identification Specialist Name Role Phone Jason Subramanian MD Primary Care Provider [phone] Livia Villegas NP Unavailable [phone] Jason Subramanian MD Primary Care Provider [phone] Jason Subramanian MD Unavailable Livia Villegas NP Unavailable [phone] Livia Villegas NP Unavailable [phone] Encounter Details Date Type Department Care Team (Late Contact Info) Description 11/10/2023 Abstract [facility] [address] [place] [address] Livia Villegas NP [address] [place] [address] Social History Tobacco Use Types Packs/Day Years [...] Encounters Date Type Department Care Team (Late Contact Info) Description 06/01/2025 2:40 PM EDT Office Visit [facility] [address] [place] [address] Livia Villegas NP [address] [place] [address] 05/09/2026 4:30 PM EDT Office Visit [facility] [address] [place] [address] Livia Villegas, MADELEINE [address] [place] [address] documented as of this encounter Visit Diagnoses Not on filedocumented in this encounter Care Teams Site Identification Specialist Relationship Specialty Start Date End Date Jason Subramanian MD PCP - General Family Medicine 05/01/23 11/18/23 Jason Subramanian MD [address] [place] [address] PCP - General Family Medicine 11/19/23 Jason Subramanian MD [address] [place] [address] PCP - Devoted 06/14/24 11/13/24 Livia Villegas NP [address] [place] [address] PCP - Aneta SWEENEY 11/14/24 03/13/25 Livia Villegas NP [address] [place] [address] PCP - Aneta SWEENEY 04/13/25 Livia Villegas NP [address] [place] [address] Referring Physician Nurse Practitioner 05/01/23 documented as of this encounter
--- OUTSIDE RECORDS SUMMARY | 2025-05-20 13:08 | XMS_ITS | Encounter Summary ---
Author Organization [facility] Address [address] [place] [address] Care Team Providers Care Associate Media Director Name Role Phone Livia Villegas NP Unavailable [phone] Jason Subramanian MD Primary Care Provider Livia Villegas NP Unavailable [phone] Encounter Details Date Type Department Care Team ([facility] Contact Info) Description 05/20/2025 Orders Only [facility] [address] [place] [address] Livia Villegas NP [address] [place] [address] Leukocytosis, unspecified type (Primary Dx); Elevated serum protein level Social History Tobacco Use Types Packs/Day Years [...] Upcoming Encounters Date Type Department Care Team ([facility] Contact Info) Description 06/01/2025 2:40 PM EDT Office Visit [facility] [address] [place] [address] Livia Villegas NP [address] [place] [address] 05/09/2026 4:30 PM EDT Office Visit [facility] [address] [place] [address] Livia Villegas, MADELEINE [address] [place] [address] documented as of this encounter Visit Diagnoses Diagnosis Leukocytosis, unspecified type- Primary Elevated serum protein level documented in this encounter Additional Health Concerns Assessment Noted Time PHQ-9 Depression Total Score: 7 05/03/20 4:56 PM EDT documented as of this encounter Care Teams Associate Media Director Relationship Specialty Start Date End Date Jason Subramanian MD [address] [place] [phone] PCP - General Family Medicine 11/19/23 Livia Villegas NP [address] [place] [address] PCP - Aneta SWEENEY 04/13/25 Livia Villegas NP [address] [place] [address] Referring Physician Nurse Practitioner 05/01/23 documented as of this encounter
--- OUTSIDE RECORDS SUMMARY | 2025-05-20 13:08 | XMS_ITS | Encounter Summary ---
Author Organization [facility] Address [address] [place] [address] Care Team Providers Care Court Specialist Name Role Phone Livia Villegas NP Unavailable [phone] Jason Subramanian MD Primary Care Provider [phone] Livia Villegas NP Unavailable [phone] Encounter Details Date Type Department Care Team ([facility] Contact Info) Description 05/20/2025 Orders Only [facility] [address] [place] [address] Livia Villegas NP [address] [place] [address] Elevated serum protein level (Primary Dx); Leukocytosis, unspecified type; Elevated platelet count Social History Tobacco Use [...] Upcoming Encounters Date Type Department Care Team ([facility] Contact Info) Description 06/01/2025 2:40 PM EDT Office Visit [facility] [address] [place] [address] Livia Villegas NP [address] [place] [address] 05/09/2026 4:30 PM EDT Office Visit [facility] [address] [place] [phone] Livia Villegas NP [address] [place] [address] Scheduled Orders Name Type Priority Associated Diagnoses Orde r Schedule Peripheral blood smear Pathology and Cytology Routine Elevated serum protein level Leukocytosis, unspecified type Elevated platelet count Expected: 05/20/2025 (Approximate), Expires: 05/20/2026 CBC and differential Lab Routine Elevated serum protein level Leukocytosis, unspecified type Elevated platelet count Expected: 05/20/2025 (Approximate), Expires: 05/20/2026 Sedimentation rate, automated Lab Routine Elevated serum protein level Leukocytosis, unspecified type Elevated platelet count Expected: 05/20/2025 (Approximate), Expires: 05/20/2026 C-reactive protein Lab Routine Elevated serum protein level Leukocytosis, unspecified type Elevated platelet count Expected: 05/20/2025 (Approximate), Expires: 05/20/2026 documented as of this encounter Visit Diagnoses Diagnosis Elevated serum protein level- Primary Leukocytosis, unspecified type Elevated platelet count Essential thrombocythemia documented in this encounter Additional Health Concerns Assessment Noted Time PHQ-9 Depression Total Score: 7 05/03/20 25 4:56 PM EDT documented as of this encounter Care Teams Court Specialist Relationship Specialty Start Date End Date Jason Subramanian MD [address] [place] [address] PCP - General Family Medicine 11/19/23 Livia Villegas NP [address] [place] [address] PCP - Aneta SWEENEY 04/13/25 Livia Villegas NP [address] [place] [address] Referring Physician Nurse Practitioner 05/01/23 documented as of this encounter
--- OUTSIDE RECORDS SUMMARY | 2025-05-20 13:08 | XMS_ITS | Encounter Summary ---
Author Organization [facility] Address [address] [facility] [place] [address] Care Team Providers Care Brass Molder Name Role Phone Livia Villegas NP Unavailable [phone] Jason Subramanian MD Primary Care Provider Livia Villegas MANAGER TELEMETRY Unavailable [phone] Encounter Details Date Type Department Care Team ([facility] Contact Info) Description 05/17/2025 Clinisync Result Encounter NOMS External Department Unsolicited Livia Villegas NP [address] [place] [address] Social History Tobacco Use Types Packs/Day Years [...] Upcoming Encounters Date Type Department Care Team ([facility] Contact Info) Description 06/01/2025 2:40 PM EDT Office Visit [facility] [address] [place] [phone] Livia Villegas NP [address] [place] [address] 05/09/2026 4:30 PM EDT Office Visit [facility] [address] [place] [address] Livia Villegas NP [address] [place] [address] documented as of this encounter Procedures Procedure Name Priority Date/Time Associated Diagnosis Comments TBH VITAMIN D 25 [place] Routine 05/17/2025 1 1:50 AM EDT [facility] CMP (CMP) (FOR REMOTE [facility] USE) Routine 05/17/2025 11:47 AM EDT ALL THYROID STIM HORMONE Routine 05/17/2025 11:47 AM EDT ALL LIPID PROFILE (FASTING) Routine 05/17/2025 11:47 AM EDT ALL CBC WITH AUTO DIFF Routine 05/17/2025 11:47 AM EDT TBH UA (CLEAN/CATCH) MICROSCOPIC IF INDICATE Routine 05/17/2025 11:29 AM EDT TBH MICROALB CREAT RATIO RANDOM Routine 05/17/2025 11:29 AM EDT documented in this encounter Results * TBH VITAMIN D 25 [place] (05/17/2025 11:50 AM EDT) VITAMIN D 66.9 ng/mL TB Comment: <20 ng/mL Vit D deficient 20-<30 ng/mL Vit D insufficient 30-100 ng/mL Vit D sufficient >100 ng/mL Potential Toxicity 05/17/2025 11:5 0 AM EDT 05/17/2025 11:55 AM EDT Narrative CLINISYNC - 05/17/2025 1:04 PM EDT us Livia Villegas NP [facility] Final Result [facility] * ALL THYROID STIM HORMONE (05/17/2025 11:47 AM EDT) THYROID STIMULATING HORMONE 0.472 0.358 - 3.740 uIU/mL TB 05/17/2025 11:4 7 AM EDT 05/17/2025 11:55 AM EDT Narrative CLINISYNC - 05/17/2025 12:31 PM EDT Livia Villegas NP CLINISYMS Final Result Performing Organization Address [facility] de Phone Number [facility] * (ABNORMAL) ALL LIPID PROFILE (FASTING) (05/17/2025 11:47 AM EDT) TRIGLYCERIDES 80 <=150 mg/dL TBH CHOLESTEROL 217(H) <=200 mg/dL TB HDL CHOLESTEROL [...] 16.0 mg/dL TB CHOL HDL RATIO 3.6 TB Comment: 3.3 - 4.4 LOW RISK 4.4 - 7.1 AVERAGE RISK 7.1 - 11.0 MODERATE RISK >11.0 HIGH RISK 05/17/2025 11:4 7 AM EDT 05/17/2025 11:55 AM EDT Narrative CLINISYNC - 05/17/2025 12:31 PM EDT Livia Villegas NP CLINISYMS Final Result Performing Organization Address [facility] Co de Phone Number [facility] * (ABNORMAL) [facility] CMP (CMP) (FOR REMOTE [facility] USE) (05/17/2025 11:47 AM EDT) SODIUM 141 136 - 145 mmol/L TBH POTASSIUM 3.2(L) 3.5 - 5.1 mmol/L TBH CHLORIDE 106 98 - 107 mmol/L TBH CARBON DIOXIDE 21.3 21.0 - 32.0 mmol/L TBH ANION GAP 16.9 TBH GLUCOSE 98 74 - 106 mg/dL TBH BLOOD UREA NITROGEN 15.0 7.0 - 18.0 mg/dL TBH CREATININE 1.09(H) 0.55 - 1.02 mg/dL TBH TBH EGFR-AF [place] >60 >=60 mL/min/1. 73m 2 TBH TBH EGFR-NON AF [place] 51(L) >=60 mL/min/1. 73m 2 TBH BUN CREATININE RATIO 13.8 TBH CALCIUM 9.6 8.5 - 10.1 mg/dL TBH BILIRUBIN TOTAL 0.3 0.2 - 1.0 mg/dL TBH ASPARTATE AMINO TRANSFERASE 14(L) 15 - 37 U/L TBH ALANINE AMINOTRANSFERASE 20 14 - 59 U/L TBH ALKALINE PHOSPHATASE 114 46 - 116 U/L TBH TOTAL PROTEIN 8.7(H) 6.4 - 8.2 g/dL TBH ALBUMIN LEVEL 4.0 3.4 - 5.0 g/dL TBH GLOBULIN 4.7 g/dL TBH ALBUMIN GLOBULIN RATIO 0.9 TBH 05/17/2025 11:4 7 AM EDT 05/17/2025 11:55 AM EDT Narrative CLINISYNC - 05/17/2025 12:31 PM EDT us Livia Villegas NP [facility] Final [facility] * (ABNORMAL) ALL CBC WITH AUTO DIFF (05/17/2025 11:47 AM EDT) TBH WBC 13.6(H) 4.0 - 11.0 10 3/uL [...] 05/17/2025 12:16 PM EDT us Livia Villegas NP CLINISYNC Final Result [facility] * TB MICROALB CREAT RATIO RANDOM (05/17/2025 11:29 AM [...] 05/17/2025 12:46 PM EDT us Livia Villegas MANAGER TELEMETRY CLINISYNC Final Result Performing Organization Address City/[facility] Co de Phone Number CLINISYNC TBH * TBH UA (CLEAN/CATCH) MICROSCOPIC IF INDICATE [...] us Livia Villegas NP CLINISYNC Final Result Performing Organization Address City/[facility] de Phone Number CL[facility] documented in this encounter Visit Diagnoses Not on filedocumented in this encounter Additional Health Concerns Assessment Noted Time PHQ-9 Depression Total Score: 7 05/03/20 25 4:56 PM EDT documented as of this encounter Care Teams Brass Molder Relationship Specialty Start Date End Date Jason Subramanian MD [address] [place] [id number] PCP - General Family Medicine 11/19/23 Livia Villegas NP [address] [place] [phone] PCP - Aneta SWEENEY 04/13/25 Livia Villegas NP [address] [place] [phone] Referring Physician Nurse Practitioner 05/01/23 documented as of this encounter
--- OUTSIDE RECORDS SUMMARY | 2025-05-20 13:08 | XMS_ITS | Encounter Summary ---
Author Organization [facility] Address [address] [place] [address] Care Team Providers Care Cable Way Operator Name Role Phone Unallocated, Noms Provider Primary Care Provi yaritza Jason Subramanian MD Primary Care Provider [phone] AichholLivia naqvi MULTIMEDIA COORDINATOR Unavailable [phone] Jason Subramanian MD Primary Care Provider [phone] Jason Subramanian MD Unavailable Aichholz, Livia MULTIMEDIA COORDINATOR Unavailable Aichholdonya Livia MULTIMEDIA COORDINATOR Unavailable [phone] Encounter Details Date Type Department Care Team (Late Contact Info) Description 03/29/2023 Abstract [facility] [place] [facility] [address] [facility] [address] [place] [address] Sung Sanz MD [address] [facility] [address] [place] [address] Social History Tobacco Use Types Packs/Day Years Used Date Smoking Tobacco: Every Day Cigarettes Smokeless Tobacco: Never Comments Unknown Sex and Gender Information Value Date Recorded Sex Assigned at Not on file Legal Sex Female 11:52 PM EDT Gender Identity Not on file Sexual Orientation Not on file documented as of this encounter Plan of Treatment Upcoming Encounters Date Type Department Care Team ([facility] Contact Info) Description 06/01/2025 2:40 PM EDT Office Visit [facility] [address] [place] [address] Livia Villegas, MADELEINE [address] [place] [address] 05/09/2026 4:30 PM EDT Office Visit [facility] [address] [place] [phone] Livia Villegas, MADELEINE [address] [place] [address] documented as of this encounter Visit Diagnoses Not on filedocumented in this encounter Care Teams Cable Way Operator Relationship Specialty Start Date End Date Unallocated, Noms MD Misa [address] [place] [address] PCP - General 03/27/23 04/30/23 Jason Subramanian MD [address] [place] [address] PCP - General Family Medicine 05/01/23 11/18/23 Jason Subramanian MD [address] [place] [address] PCP - General Family Medicine 11/19/23 Jason Subramanian MD [address] [place] [address] PCP - Devoted 06/14/24 11/13/24 Livia Villegas NP [address] [place] [address] PCP - Aneta SWEENEY 11/14/24 03/13/25 Livia Villegas NP [address] [place] [address] PCP - Aneta SWEENEY 04/13/25 Livia Villegas NP [address] [place] [address] Referring Physician Nurse Practitioner 05/01/23 documented as of this encounter
--- OUTSIDE RECORDS SUMMARY | 2025-05-20 13:08 | XMS_ITS | Encounter Summary ---
Author Organization [facility] Address [address] [place] [address] Care Team Providers Care Nurse Discharge Name Role Phone Livia Villegas NP Unavailable [phone] Jason Subramanian MD Primary Care Provider [phone] Livia Villegas NP Unavailable [phone] Encounter Details Date Type Department Care Team ([facility] Contact Info) Description 05/20/2025 Orders Only [facility] [address] [place] [address] Livia Villegas NP [address] [place] [address] Social History Tobacco Use Types [...] Upcoming Encounters Date Type Department Care Team ([facility] Contact Info) Description 06/01/2025 2:40 PM EDT Office Visit [facility] [address] [place] [address] Livia Villegas, MADELEINE [address] [place] [address] 05/09/2026 4:30 PM EDT Office Visit [facility] [address] [place] [address] Livia Villegas, MADELEINE [address] [place] [address] documented as of this encounter Visit Diagnoses Not on filedocumented in this encounter Additional Health Concerns Assessment Noted Time PHQ-9 Depression Total Score: 7 05/03/20 4:56 PM EDT documented as of this encounter Care Teams Nurse Discharge Relationship Specialty Start Date End Date Jason Subramanian MD [address] [place] [phone] PCP - General Family Medicine 11/19/23 Livia Villegas NP [address] [place] [address] PCP - Aneta SWEENEY 04/13/25 Livia Villegas NP [address] [place] [address] Referring Physician Nurse Practitioner 05/01/23 documented as of this encounter
--- OUTSIDE RECORDS SUMMARY | 2025-05-20 13:08 | XMS_ITS | Encounter Summary ---
Author Organization [facility] Address [address] [place] [address] Care Team Providers Care Medical Supervisor Name Role Phone Livia Villegas NP Unavailable [phone] Jason Subramanian MD Primary Care Provider Jason Subramanian MD Unavailable Livia Villegas NURSING PROFESSOR Unavailable [phone] Livia Villegas NP Unavailable [phone] Encounter Details Date Type Department Care Team (Late Contact Info) Description 12/11/2023 Orders Only [facility] [address] [place] [address] Livia Villegas, NURSING PROFESSOR [address] [place] [address] Elevated alkaline phosphatase level (Primary Dx); Hypokalemia; [...] Upcoming Encounters Date Type Department Care Team ([facility] Contact Info) Description 06/01/2025 2:40 PM EDT Office Visit [facility] [address] [place] [address] Livia Villegas NP [address] [place] [address] 05/09/2026 4:30 PM EDT Office Visit [facility] [address] [place] [phone] Livia Villegas, MADELEINE [address] [place] [address] Scheduled Orders Name Type Priority Associated Diagnoses [...] thrombocythemia documented in this encounter Care Teams Medical Supervisor Relationship Specialty Start Date End Date Jason Subramanian MD [address] [place] [address] PCP - General Family Medicine 11/19/23 Jasno Subramanian MD [address] [place] [address] PCP - Devoted 06/14/24 11/13/24 Livia Villegas NP [address] [place] [address] PCP - Aneta SWEENEY 11/14/24 03/13/25 Livia Villegas NP [address] [place] [address] PCP - Aneta SWEENEY 04/13/25 Livia Villegas NP [address] [place] [address] Referring Physician Nurse Practitioner 05/01/23 documented as of this encounter
== END 2025-05-20 13:07 | disposition home or self-care (01) ==
LOC: MAMMO 13:06
PROVIDERS: PCP Nurse Practitioner; Visit Provider Nurse Practitioner
DX: Z12.31 Encounter for screening mammogram for malignant neoplasm of breast (principal)
CPT/HCPCS: 77063; 77067